=== PATIENT | female | born 1945 | race Caucasian/White ===

== ENCOUNTER 2017-10-07 18:52 | Inpatient (IN) ==
--- NOTE | 2017-10-07 21:12 | Internal Med History&Physical ---
Date of Encounter: 10/07/17 Time of Encounter: 21:10 Assessment and Plan (1) Right humeral fracture Current visit: Yes Status: Acute Mechanical fall and sustained right humeral fracture Dr. Ruby has been consult Qualifiers: Encounter type: initial encounter Humerus Location: surgical neck Fracture type: closed Fracture morphology: unspecified fracture morphology Fracture alignment: nondisplaced Qualified Code(s): S42.214A - Unspecified nondisplaced fracture of surgical neck of right humerus, initial encounter for closed fracture (2) CAD (coronary artery disease) Current visit: Yes Status: Chronic She have history of MA 2006 no chest pain Qualifiers: Coronary Disease-Associated Artery/Lesion type: [place] artery [place] vs. transplanted heart: [place] heart Associated angina: without angina Qualified Code(s): I25.10 - Atherosclerotic heart disease of [place] coronary artery without angina pectoris (3) HTN (hypertension) Current visit: Yes Status: Chronic Chronic resume home medication Qualifiers: Hypertension type: essential hypertension Qualified Code(s): I10 - Essential (primary) hypertension (4) Obesity Current visit: Yes Status: Chronic Qualifiers: Obesity type: due to excess calories Obesity classification: unspecified obesity classification Serious obesity comorbidity presence: unspecified whether serious comorbidity present Qualified Code(s): E66.09 - Other obesity due to excess calories (5) Hyperlipidemia Current visit: Yes Status: Chronic Check lipid profile in a.m. Qualifiers: Hyperlipidemia type: pure hypercholesterolemia Qualified Code(s): E78.00 - Pure hypercholesterolemia, unspecified; E78.0 - Pure hypercholesterolemia (6) Diabetes 1.5, managed as type 2 Current visit: Yes Status: Chronic Chronic resume home medication and place on sliding scale (7) CKD (chronic kidney disease) Current visit: Yes Status: Chronic Chronic creatinine baseline about 1.5 Qualifiers: Chronic kidney disease stage: stage 2 (mild) Qualified Code(s): N18.2 - Chronic kidney disease, stage 2 (mild) Internal Medicine - H&P: HPI Chief complaint: right humerous fracture/mech fall Admitted From: Intrahospital Transfer Plans for Post Hospital Care: Home History of present illness: Ms. Fagan is a 71 year old female Patient with history of arthritis,, CKD CAD had an MA 2005, history of GI bleed, hypertension, high cholesterol, obesity, and diabetes patient had a mechanical fall and sustained right humeral fracture no loss of consciousness did not hit her head and then went to the emergency room x-ray showed right humeral fracture and then transferred here Dr. Ruby orthopedic has been consult taped Past Med Surg Social Fam HX - Past Medical History Medical history: arthritis, coronary artery disease, GI bleed, hyperlipidemia, hypertension, myocardial infarction Psychiatric history: no psych history - Past Surgical History Surgical History: orthopedic, other - Social History Smoking Status: Never smoker Smokeless Tobacco Status: No Alcohol use: none Drug use: none Internal Medicine - H&P: Meds OxyCODONE/APAP 5/325 [Percocet 5/325 MG] 1 each PO Q6HR PRN #10 tablet 04/07/15 [Rx] HYDROcodone/Acet 5/325 mg [[place] 5-325 mg] 1 tab PO Q6H PRN #10 tab 11/05/16 [Rx ] 3 Allergy/AdvReac Type Severity Reaction Status Date / Time acetaminophen [From Lortab] Allergy Hives Verified 11/05/16 17:02 azithromycin Allergy Hives Verified 11/05/16 17:02 cephalexin [From Keflex] Allergy Hives Verified 11/05/16 17:02 chlorhexidine Allergy Hives Verified 11/05/16 17:02 [From Hibiclens] gabapentin Allergy Hives Verified 11/05/16 17:02 hydrocodone [From Lortab] Allergy Hives Verified 11/05/16 17:02 Tizanidine Allergy Hives Verified 11/05/16 17:02 All Systems PM: A 10-system review of systems was performed and is negative for pertinent findings except as documented above in the HPI. - Constitutional Constitutional: no chills, no fever(s), no night sweats - EENT Eyes: no change in vision, no discharge, no pain, no photophobia Ears: no ear discharge, no ear pain, no tinnitus Nose, mouth and throat: no dysphagia, no nasal discharge, no neck pain, no sore throat - Cardiovascular Cardiovascular ROS IM: no chest pain, no diaphoresis, no dyspnea, no lightheadedness, no palpitations, no syncope - Respiratory Respiratory: no cough, no dyspnea, no wheezing, no excessive phlegm production - Gastrointestinal Gastrointestinal: no abdominal pain, no diarrhea, no hematemesis, no hematochezia, no melena, no nausea, no vomiting - Eye Eye exam: Present: PERRL, conjuntiva pink, sclera anicteric Pupils: Present: PERRL - Neck Neck exam general surgery: Present: supple, trachea midline. Absent: lymphadenopathy - Respiratory Respiratory exam: Present: CTAB. Absent: accessory muscle use, rales, rhonchi, wheezes - Cardiovascular Cardiovascular exam: Present: RRR, +S1, +S2. Absent: diastolic murmur, gallop, rubs, systolic murmur - GI/Abdominal GI/Abdominal exam: Present: normal bowel sounds, soft, no peritoneal signs. Absent: distended, tenderness
[2017-10-07] MEDS ORDERED: Acetaminophen 325 MG TABLET PO PRN (21:17)
[2017-10-07] MEDS ORDERED: Naloxone 0.4 MG/ML INJ IVP PRN (21:17)
[2017-10-07] MEDS ORDERED: D5% in Water 1,000 ML IVC PRN (21:21)
[2017-10-07] MEDS ORDERED: Dextrose Gel 15 GM/37.5 ML TUBE PO PRN ×2 (21:21)
[2017-10-07] MEDS ORDERED: *HR* Dextrose 50 % in Water (Syg) 50 ML SYRINGE IVP PRN (21:21)
[2017-10-07] MEDS: traMADol 50 MG TABLET PO PRN (22:28)
[2017-10-07] MEDS: 0.9 % Sodium Chloride 1,000 ML IVC SCH (22:29)
[2017-10-08] MEDS: Pregabalin 25 MG CAPSULE PO SCH ×3 (00:19→21:56)
[2017-10-08] MEDS ORDERED: *HR* Enoxaparin 40 MG/0.4 ML SYRINGE SQ SCH (06:00)
[2017-10-08 06:03] LABS: Basophils % 0.6 %; Eosinophils # 0.2 K/mcL (0.0-0.6); Eosinophils % 2.3 %; Hematocrit 29.4 % (35.3-44.9); Immature Granulocytes % 0.3 % (0-4); Lymphocytes # 1.4 K/mcL (0.6-4.6); Lymphocytes % 21.6 %; Mean Corpuscular HGB Conc 30.6 g/dL (31.6-35.5); Mean Corpuscular Hemoglobin 30.2 pg (28.0-33.3); Mean Corpuscular Volume 98.7 fL (83.0-100.0); Mean Platelet Volume 11.6 fL (9.4-12.4); Monocytes # 0.8 K/mcL (0.0-1.3); Monocytes % 12.2 %; Neutrophils # 4.2 K/mcL (1.6-8.9); Platelet Count 181 K/mcL (140-400); Red Blood Count 2.98 M/mcL (3.82-4.97); Red Cell Distribution Width 15.1 % (11.5-14.5)
[2017-10-08 06:13] LABS: Albumin 3.6 g/dL (3.5-5.7); Albumin/Globulin Ratio 1.2 (1.1-2.2); Bilirubin,Total 0.5 mg/dL (0.3-1.0); Chol/HDL Ratio 3.1 (0-4.9); Globulin 2.9 g/dL (2.4-3.5); Magnesium 1.9 mg/dL (1.6-2.6); Potassium 4.1 mEq/L (3.5-5.1); Total Protein 6.5 g/dL (6.4-8.9)
[2017-10-08] MEDS: *HR* HYDROcodone/Acet 5/325 mg TABLET PO PRN ×3 (08:15→18:36)
--- NOTE | 2017-10-08 08:16 | Internal Med Progress Note ---
<Perez Riley - Last Filed: 10/08/17 14:34> Date of Encounter: 10/08/17 Time of Encounter: 09:15 - Assessment and plan (1) Right humeral fracture Current Visit: Yes Status: Acute Assessment and plan: Right humeral fracture s/p mechanical fall Orthopedic surgery on board, plan for ORIF today Patient has PRN pain medications ordered which adequately control acute pain Qualifiers: Encounter type: initial encounter Humerus Location: surgical neck Fracture type: closed Fracture morphology: unspecified fracture morphology Fracture alignment: nondisplaced Qualified Code(s): S42.214A - Unspecified nondisplaced fracture of surgical neck of right humerus, initial encounter for closed fracture (2) CAD (coronary artery disease) Current Visit: Yes Status: Chronic Assessment and plan: Hx of CAD s/p [place] 2005 No chest pain at this time Continue home meds Qualifiers: Coronary Disease-Associated Artery/Lesion type: [place] artery [place] vs. transplanted heart: [place] heart Associated angina: without angina Qualified Code(s): I25.10 - Atherosclerotic heart disease of [place] coronary artery without angina pectoris (3) HTN (hypertension) Current Visit: Yes Status: Chronic Assessment and plan: Resume home meds Qualifiers: Hypertension type: essential hypertension Qualified Code(s): I10 - Essential (primary) hypertension (4) Obesity Current Visit: Yes Status: Chronic Assessment and plan: Patient has been counseled on weight loss Qualifiers: Obesity type: due to excess calories Obesity classification: unspecified obesity classification Serious obesity comorbidity presence: unspecified whether serious comorbidity present Qualified Code(s): E66.09 - Other obesity due to excess calories (5) Hyperlipidemia Current Visit: No Status: Chronic Assessment and plan: Hyperlipidemia, chronic LDL and HDL cholesterol in appropriate ranges Continue home statin Qualifiers: Hyperlipidemia type: pure hypercholesterolemia Qualified Code(s): E78.00 - Pure hypercholesterolemia, unspecified; E78.0 - Pure hypercholesterolemia (6) Diabetes 1.5, managed as type 2 Current Visit: Yes Status: Chronic Assessment and plan: Apparently well controlled DM1.5 We will use SSI for management of BG during admission (7) CKD (chronic kidney disease) Current Visit: Yes Status: Chronic Assessment and plan: CKD stage 3B, Stable Serum Cr 1.33, baseline 1.3. eGFR 39 Avoid nephrotoxic agents, continue to monitor renal function Qualifiers: Chronic kidney disease stage: stage 2 (mild) Qualified Code(s): N18.2 - Chronic kidney disease, stage 2 (mild) (8) Pre-operative examination for internal medicine Current Visit: Yes Status: Acute Assessment and plan: Moderate to high risk surgical candidate, RCI Class IV Patient has history of [place] in 2005, CHF No prior TTE to observe, EKG shows no obvious signs of acute ischemia There are no medications that should be stopped prior to surgery (9) DVT prophylaxis Current Visit: Yes Status: Acute Assessment and plan: SQ Lovenox - Subjective Interval history: The patient was resting comfortably in a bedside chair at time of examination. She is currently wearing a sling on her right arm. She says that she still having significant pain in her hips, back, shoulders. Some of this is chronic. - Constitutional Vitals: Temp Pulse Resp BP Pulse Ox 98.5 F 73 16 127/74 95 10/08/17 06:41 10/08/17 06:41 10/08/17 06:41 10/08/17 06:41 10/08/17 06:41 Exam: Gen.: Vitals noted. No acute distress. AAOx3 HEENT: PERRL/EOMI, oropharynx clear, Normocephalic, atraumatic Neck: Supple. No adenopathy. Cardiac: RRR, no murmur, +S1/S2 Pulmonary: CTA bilaterally, no wheezes, rales or rhonchi, equal chest expansion Abdomen: soft, nontender, BS noted, no guarding Back: Tender throughout thoracic and lumbar spine, multiple incision site scars found MSK: ROM intact, no joint swelling noted. Right UE is found in sling, neurovascular bundle intact, pink fingers with normal sensation and movement. Extremities: no BLE edema, nontender calf, no cyanosis or clubbing Neuro: A&Ox3, moves all extremities, no focal deficits Psych: Appropriate mood and behavior Internal Medicine: Result - Labs CBC & Chem 7: 10/08/17 04:53 10/08/17 04:53 Labs: Short CBC 10/08/17 Range/Units 04:53 WBC 6.7 (4.3-11.1) K/mcL Hgb 9.0 L (11.5-15.4) g/dL Hct 29.4 L (35.3-44.9) % Plt Count 181 (140-400) K/mcL Neutrophils # 4.2 (1.6-8.9) K/mcL BMP 10/08/17 04:53 Sodium 138 Potassium 4.1 Chloride 109 H Carbon Dioxide 23 BUN 21 Creatinine 1.33 H Glucose 149 H Calcium 9.0 Cardiac Enzymes 10/07/17 10/08/17 Range/Units 21:43 04:53 Troponin I < 0.03 < 0.03 (< 0.04) ng/mL Liver Function 10/08/17 Range/Units 04:53 Total Bilirubin 0.5 (0.3-1.0) mg/dL AST 26 (13-39) Units/L ALT 12 (7-52) Units/L Alkaline Phosphatase 50 (34-104) Units/L Albumin 3.6 (3.5-5.7) g/dL Consult Discharge Plan - Plan Referrals: Cherelle Verma MD [Primary Care Provider] - <Enzo Forbes - Last Filed: 10/08/17 15:17> Date of Encounter: 10/08/17 - Assessment and plan (1) Right humeral fracture Current Visit: Yes Status: Acute Qualifiers: Encounter type: initial encounter Humerus Location: surgical neck Fracture type: closed Fracture morphology: unspecified fracture morphology Fracture alignment: nondisplaced Qualified Code(s): S42.214A - Unspecified nondisplaced fracture of surgical neck of right humerus, initial encounter for closed fracture (2) CAD (coronary artery disease) Current Visit: Yes Status: Chronic Qualifiers: Coronary Disease-Associated Artery/Lesion type: [place] artery [place] vs. transplanted heart: [place] heart Associated angina: without angina Qualified Code(s): I25.10 - Atherosclerotic heart disease of [place] coronary artery without angina pectoris (3) HTN (hypertension) Current Visit: Yes Status: Chronic Qualifiers: Hypertension type: essential hypertension Qualified Code(s): I10 - Essential (primary) hypertension (4) Obesity Current Visit: Yes Status: Chronic Qualifiers: Obesity type: due to excess calories Obesity classification: unspecified obesity classification Serious obesity comorbidity presence: unspecified whether serious comorbidity present Qualified Code(s): E66.09 - Other obesity due to excess calories (5) Hyperlipidemia Current Visit: No Status: Chronic Qualifiers: Hyperlipidemia type: pure hypercholesterolemia Qualified Code(s): E78.00 - Pure hypercholesterolemia, unspecified; E78.0 - Pure hypercholesterolemia (6) Diabetes 1.5, managed as type 2 Current Visit: Yes Status: Chronic (7) CKD (chronic kidney disease) Current Visit: Yes Status: Chronic Qualifiers: Chronic kidney disease stage: stage 2 (mild) Qualified Code(s): N18.2 - Chronic kidney disease, stage 2 (mild) (8) Pre-operative examination for internal medicine Current Visit: Yes Status: Acute (9) DVT prophylaxis Current Visit: Yes Status: Acute - Constitutional Vitals: Temp Pulse Resp BP Pulse Ox 98.7 F 81 16 129/68 96 10/08/17 09:55 10/08/17 09:55 10/08/17 09:55 10/08/17 09:55 10/08/17 09:55 Internal Medicine: Result - Labs CBC & Chem 7: 10/08/17 04:53 10/08/17 04:53 Labs: Short CBC 10/08/17 Range/Units 04:53 WBC 6.7 (4.3-11.1) K/mcL Hgb 9.0 L (11.5-15.4) g/dL Hct 29.4 L (35.3-44.9) % Plt Count 181 (140-400) K/mcL Neutrophils # 4.2 (1.6-8.9) K/mcL BMP 10/08/17 04:53 Sodium 138 Potassium 4.1 Chloride 109 H Carbon Dioxide 23 BUN 21 Creatinine 1.33 H Glucose 149 H Calcium 9.0 Cardiac Enzymes 10/07/17 10/08/17 10/08/17 Range/Units 21:43 04:53 10:30 Troponin I < 0.03 < 0.03 < 0.03 (< 0.04) ng/mL Liver Function 10/08/17 Range/Units 04:53 Total Bilirubin 0.5 (0.3-1.0) mg/dL AST 26 (13-39) Units/L ALT 12 (7-52) Units/L Alkaline Phosphatase 50 (34-104) Units/L Albumin 3.6 (3.5-5.7) g/dL - Attending Attestation I examined this patient and my medical decision-making was reviewed with the Resident Physician. I agree with the documented findings, disposition and treatment plan as described except to the extent set forth below. Seen and examined at the bedside Agree with plan For surgery today
[2017-10-08] MEDS: Insulin LISPRO 300 UNITS/3 ML VIAL SQ SCH ×3 (08:54→18:30)
--- NOTE | 2017-10-08 09:14 | Event Note ---
Date of Encounter: 10/08/17 Time of Encounter: 09:00 Patient seen at bedside. Patient expresses concern regarding ability to return home after surgery. Denies any questions regarding surgical procedure itself. Discussed home health vs rehab as patient states she has no one available to help her at home and she is ambulatory with cane or walker only. Discussed with patient and Dr. Derrell BYNUM and nurse Allison. Will continue to follow after surgery.
[2017-10-08] MEDS: 0.9 % Sodium Chloride 1,000 ML IVC SCH (11:31)
[2017-10-08] MEDS ORDERED: *HR* Propofol 200 MG/20 ML VIAL IVP ONE (14:55)
[2017-10-08] MEDS ORDERED: Lidocaine -MPF 2% 2 ML VIAL ONE (14:58)
[2017-10-08] MEDS ORDERED: *HR* Rocuronium Bromide 50 MG/5 ML VIAL ONE (14:58)
[2017-10-08] MEDS ORDERED: Dexamethasone 4 MG/ML VIAL ONE ×2 (14:58→15:18)
[2017-10-08] MEDS ORDERED: Ondansetron 4 MG/2 ML VIAL ONE (14:58)
[2017-10-08] MEDS ORDERED: *HR* Succinylcholine 200 MG/10 ML VIAL IVP ONE (15:02)
[2017-10-08] MEDS ORDERED: Ethanol\\Acetic Acid\\Na Ace\\Ben 1,000 ML IRRIG.SOLN IR ONE (15:02)
[2017-10-08] MEDS ORDERED: Bupivacaine-MPF 0.25% 10 ML VIAL ONE (15:18)
[2017-10-08] MEDS ORDERED: *HR* Midazolam HCl 2 MG/2 ML VIAL ONE (15:18)
[2017-10-08] MEDS ORDERED: *HR* FentaNYL (PF) 100 MCG/2 ML VIAL ONE (15:18)
--- NOTE | 2017-10-08 15:20 | Anesthesia Evaluation PreOp ---
Date of Encounter: 10/08/17 Time of Encounter: 15:18 - Past History Planned Operation: Right total shoulder replacement, reverse Cardiac History: [place] (2005), HTN, Hyperlipidemia, Cardiac Stent (2 stents 2005), Other (good functional capacity; able to walk up a flight of stairs) Pulmonary History: Other (patient has been more short of breath recently) [employer] History: Denies Any Significant HX Other Medical History: Renal (ckd stage 3), Diabetes Type II (oral medications only) Anesthesia History: No Prior Anesthetic Complications Alcohol Use: none Drug use: none Medications and Allergies Aspirin [Lo-Dose Aspirin EC] 81 mg PO DAILY 10/07/17 [History] Atenolol [Tenormin] 25 mg PO DAILY 10/07/17 [History] Atorvastatin [Lipitor] 80 mg PO HS 10/07/17 [History] Pregabalin [Lyrica] 25 mg PO BID 10/07/17 [History] Sertraline [Zoloft] 100 mg PO DAILY 10/07/17 [History] Biotin 1,000 mcg PO DAILY 10/08/17 [History] Ergocalciferol (VITAMIN D2) [Vitamin D2] 50,000 unit PO QWEEK 10/08/17 [History] Famotidine [Pepcid] 20 mg PO DAILY 10/08/17 [History] Ferrous Sulfate [Iron] 325 mg PO DAILY 10/08/17 [History] Glimepiride [Amaryl] 2 mg PO QPM 10/08/17 [History] Glimepiride [Amaryl] 4 mg PO QAM 10/08/17 [History] HYDROcodone/Acet 5/325 mg [[place] 5-325 mg] 1 tab PO BID PRN 10/08/17 [History] Pioglitazone [Actos] 30 mg PO DAILY 10/08/17 [History] SitaGLIPtin [Januvia] 25 mg PO DAILY 10/08/17 [History] Sodium Bicarbonate 325 mg PO BID 10/08/17 [History] 3 Allergy/AdvReac Type Severity Reaction Status Date / Time azithromycin Allergy Hives Verified 10/08/17 09:36 cephalexin [From Keflex] Allergy Hives Verified 10/08/17 09:36 chlorhexidine Allergy Hives Verified 10/08/17 09:36 [From Hibiclens] gabapentin Allergy Hives Verified 10/08/17 09:36 Tizanidine Allergy Hives Verified 10/08/17 09:36 - Meds/Allergy Pre-op Review Medications Reviewed: Yes Allergies Reviewed: Yes Beta Blockers on Current Med List: Yes (atenolol) If Beta Blockers taken, Date/Time (Last Dose taken): 10-07-17 9:00 am Anesthesia Results - Labs 10/08/17 04:53 10/08/17 04:53 - Imaging EKG: report reviewed, image reviewed (SR; low voltage QRS in precordial leads, nonspecific ST&T abnormality) Anesthesia Exam Last Vital Signs Temp 98.7 F 10/08/17 09:55 Pulse 81 10/08/17 09:55 Resp 16 10/08/17 09:55 BP 129/68 10/08/17 09:55 Pulse Ox 96 10/08/17 09:55 Weight: 89 kg NPO (# of Hours): > 8 hrs - HEENT Pupil (Motor): Pupils equal, EOMI Mallampati: II Teeth: Normal (short TM distance) Oral Opening: Greater than 3 - [employer] LOC: Oriented - Cardiac Rhythm: Regular Murmur: None - Pulmonary Breath Sounds: bilateral Clear Respiratory Effort: Symmetrical Anesthesia Assess/Plan ASA Score: 3 Modified Parrish Scale for Level of Consciousness: Cooperative, oriented, and tranquil Anesthetic Plan: General, Regional Monitoring Plan: Standard Monitors Recovery Plan: PACU
[2017-10-08] MEDS ORDERED: ROPIVACAINE HCL/PF 0.5% 30 ML VIAL ONE (15:24)
--- NOTE | 2017-10-08 16:17 | Orthopedics Progress Note ---
Date of Encounter: 10/08/17 Time of Encounter: 16:17 Subjective Interval history: Patient surgery was placed on hold today. Further evaluation of x-rays revealed a spiral fracture that extends from the proximal humerus to the distal humerus. Patient requires a CT scan to better plan for the procedure.The patient understands the reason for the delay surgery is rescheduled for tomorrow. Objective Vital signs: Vital Signs Temp Pulse Resp BP Pulse Ox 10/08/17 09:55 98.7 F 81 16 129/68 96 10/08/17 09:00 95 10/08/17 06:41 98.5 F 73 16 127/74 95 10/08/17 04:33 98.4 F 68 18 134/64 96 10/07/17 23:16 98.4 F 77 18 141/60 98 10/07/17 20:57 97 10/07/17 20:45 98.4 F 73 18 122/65 97 Intake and Output 10/08/17 10/08/17 10/08/17 07:59 15:59 23:59 Intake Total 1000 / 1000 Output Total 525 / 525 450 / 450 Balance -525 / -525 550 / 550 Intake: IV Fluids 1000 / 1000 0.9 % Sodium Chloride 1,000 ML 1000 / 1000 @ 75 mls/hr IVC .[id number] PRATIBHA Rx #:[id number] Output: Catheter 525 / 525 450 / 450 Other: Blood Glucose* 176 - Labs CBC & BMP: 10/08/17 04:53 10/08/17 04:53 Labs: Abnormal lab results RBC 2.98 M/mcL (3.82-4.97) L 10/08/17 04:53 Hgb 9.0 g/dL (11.5-15.4) L 10/08/17 04:53 Hct 29.4 % (35.3-44.9) L 10/08/17 04:53 MCHC 30.6 g/dL (31.6-35.5) L 10/08/17 04:53 RDW 15.1 % (11.5-14.5) H 10/08/17 04:53 Chloride 109 mEq/L (98-107) H 10/08/17 04:53 Creatinine 1.33 mg/dL (0.60-1.20) H 10/08/17 04:53 Est GFR ( Amer) 48 (> 60) L 10/08/17 04:53 Est GFR (Non-Af Amer) 39 (> 60) L 10/08/17 04:53 Glucose 149 mg/dL (70-105) H 10/08/17 04:53 POC Glucose 176 (58-89) H 10/08/17 11:35 Consult Discharge Plan - Plan Referrals: Cherelle Verma MD [Primary Care Provider] -
[2017-10-08] MEDS ORDERED: OXYCODONE Oral CONC 10 MG/0.5 ML ORAL.SYG SL ONE (17:03)
[2017-10-09] MEDS: *HR* HYDROcodone/Acet 5/325 mg TABLET PO PRN ×3 (02:29→20:48)
--- NOTE | 2017-10-09 06:07 | Orthopedics Progress Note ---
Date of Encounter: 10/09/17 Time of Encounter: 06:07 Subjective Interval history: CT scan reviewed plan is for long open reduction internal fixation plate extending from proximal humerus was done to the elbow. Reviewed this with the patient obtained a consent We reviewed the risks and benefits as well as recovery. All questions were answered. The patient agreed to this treatment plan and appeared to understand the plan is reviewed. Objective Vital signs: Vital Signs Temp Pulse Resp BP Pulse Ox 10/09/17 04:11 99.2 F 82 18 124/64 95 10/08/17 22:31 98.6 F 101 17 137/89 99 10/08/17 19:58 98.9 F 70 16 155/57 96 10/08/17 09:55 98.7 F 81 16 129/68 96 10/08/17 09:00 95 10/08/17 06:41 98.5 F 73 16 127/74 95 Intake and Output 10/08/17 10/08/17 10/09/17 15:59 23:59 07:59 Intake Total 1000 / 1000 120 / 120 0 / 0 Output Total 450 / 450 600 / 600 Balance 550 / 550 120 / 120 -600 / -600 Intake: IV Fluids 1000 / 1000 0.9 % Sodium Chloride 1,000 ML 1000 / 1000 @ 75 mls/hr IVC .[id number] PRATIBHA Rx #:[id number] Oral 120 / 120 0 / 0 Output: Catheter 450 / 450 600 / 600 Other: Meal Dinner Percent of Meal Consumed 100% Weight 90.31 kg Blood Glucose* 176 176 Patient Weight 10/09/17 23:59 Weight 90.31 kg - Labs CBC & BMP: 10/08/17 04:53 10/08/17 04:53 Labs: Abnormal lab results RBC 2.98 M/mcL (3.82-4.97) L 10/08/17 04:53 Hgb 9.0 g/dL (11.5-15.4) L 10/08/17 04:53 Hct 29.4 % (35.3-44.9) L 10/08/17 04:53 MCHC 30.6 g/dL (31.6-35.5) L 10/08/17 04:53 RDW 15.1 % (11.5-14.5) H 10/08/17 04:53 Chloride 109 mEq/L (98-107) H 10/08/17 04:53 Creatinine 1.33 mg/dL (0.60-1.20) H 10/08/17 04:53 Est GFR ( Amer) 48 (> 60) L 10/08/17 04:53 Est GFR (Non-Af Amer) 39 (> 60) L 10/08/17 04:53 Glucose 149 mg/dL (70-105) H 10/08/17 04:53 POC Glucose 176 (58-89) H 10/08/17 11:35 - VTE Documentation of Mechanical Device: Venous foot pump, device Consult Discharge Plan - Plan Referrals: Cherelle Verma MD [Primary Care Provider] -
[2017-10-09 07:15] LABS: Basophils % 0.4 %; Eosinophils # 0.3 K/mcL (0.0-0.6); Eosinophils % 4.4 %; Hematocrit 27.5 % (35.3-44.9); Hemoglobin 8.8 g/dL (11.5-15.4); Immature Granulocytes % 0.3 % (0-4); Lymphocytes # 1.4 K/mcL (0.6-4.6); Lymphocytes % 21.1 %; Mean Corpuscular Volume 96.8 fL (83.0-100.0); Mean Platelet Volume 11.6 fL (9.4-12.4); Monocytes # 0.9 K/mcL (0.0-1.3); Monocytes % 13.1 %; Neutrophils # 4.1 K/mcL (1.6-8.9); Platelet Count 169 K/mcL (140-400); Red Blood Count 2.84 M/mcL (3.82-4.97); Segmented Neutrophils % 60.7 %
[2017-10-09] MEDS: traMADol 50 MG TABLET PO PRN (07:33)
--- NOTE | 2017-10-09 07:37 | Internal Med Progress Note ---
<Perez Riley - Last Filed: 10/09/17 13:00> Date of Encounter: 10/09/17 Time of Encounter: 08:30 - Assessment and plan (1) Right humeral fracture Current Visit: Yes Status: Acute Assessment and plan: Right humeral fracture s/p mechanical fall Orthopedic surgery on board, Possible ORIF today pending CT evaluation Patient has PRN pain medications ordered which adequately control acute pain Qualifiers: Encounter type: initial encounter Humerus Location: surgical neck Fracture type: closed Fracture morphology: unspecified fracture morphology Fracture alignment: nondisplaced Qualified Code(s): S42.214A - Unspecified nondisplaced fracture of surgical neck of right humerus, initial encounter for closed fracture (2) CAD (coronary artery disease) Current Visit: Yes Status: Chronic Assessment and plan: Hx of CAD s/p [place] 2005 No chest pain at this time Continue home meds Qualifiers: Coronary Disease-Associated Artery/Lesion type: [place] artery [place] vs. transplanted heart: [place] heart Associated angina: without angina Qualified Code(s): I25.10 - Atherosclerotic heart disease of [place] coronary artery without angina pectoris (3) HTN (hypertension) Current Visit: Yes Status: Chronic Assessment and plan: Resume home meds Qualifiers: Hypertension type: essential hypertension Qualified Code(s): I10 - Essential (primary) hypertension (4) Obesity Current Visit: Yes Status: Chronic Assessment and plan: Patient has been counseled on weight loss Qualifiers: Obesity type: due to excess calories Obesity classification: unspecified obesity classification Serious obesity comorbidity presence: unspecified whether serious comorbidity present Qualified Code(s): E66.09 - Other obesity due to excess calories (5) Hyperlipidemia Current Visit: No Status: Chronic Assessment and plan: Hyperlipidemia, chronic LDL and HDL cholesterol in appropriate ranges Continue home statin Qualifiers: Hyperlipidemia type: pure hypercholesterolemia Qualified Code(s): E78.00 - Pure hypercholesterolemia, unspecified; E78.0 - Pure hypercholesterolemia (6) Diabetes 1.5, managed as type 2 Current Visit: Yes Status: Chronic Assessment and plan: Apparently well controlled DM1.5 We will use SSI for management of BG during admission (7) CKD (chronic kidney disease) Current Visit: Yes Status: Chronic Assessment and plan: CKD stage 3B, Stable Serum Cr 1.26, baseline 1.3. eGFR 42 Avoid nephrotoxic agents, continue to monitor renal function Qualifiers: Chronic kidney disease stage: stage 2 (mild) Qualified Code(s): N18.2 - Chronic kidney disease, stage 2 (mild) (8) Pre-operative examination for internal medicine Current Visit: Yes Status: Acute Assessment and plan: Moderate to high risk surgical candidate, RCI Class IV Patient has history of FL in 2006, CHF No prior TTE to observe, EKG shows no obvious signs of acute ischemia There are no medications that should be stopped prior to surgery (9) DVT prophylaxis Current Visit: Yes Status: Acute Assessment and plan: SQ Lovenox - Subjective Interval history: The patient was resting comfortably in a bedside chair at time of examination. She is currently wearing a sling on her right arm. The patient complains of diffuse pain throughout her body, not necessarily coming specifically from her site of injury. Apparently, the injury was more severe than previously noted, and she was unable to have the procedure yesterday because she would require a CT and order to safely perform the reconstruction. However, upon transport to the CT she apparently could not tolerate the movement due to pain and did not have the CT completed. The patient also apparently became somewhat confused and disoriented overnight. - Constitutional Vitals: Temp Pulse Resp BP Pulse Ox 99.2 F 82 18 124/64 95 10/09/17 04:11 10/09/17 04:11 10/09/17 04:11 10/09/17 04:11 10/09/17 04:11 Exam: Gen.: Vitals noted. No acute distress. AAOx3 HEENT: PERRL/EOMI, oropharynx clear, Normocephalic, atraumatic Neck: Supple. No adenopathy. Cardiac: RRR, no murmur, +S1/S2 Pulmonary: CTA bilaterally, no wheezes, rales or rhonchi, equal chest expansion Abdomen: soft, nontender, BS noted, no guarding Back: Tender throughout thoracic and lumbar spine, multiple incision site scars found MSK: ROM intact, no joint swelling noted. Right UE is found in sling, neurovascular bundle intact, pink fingers with normal sensation and movement. Extremities: Trace LE edema b/l with tenderness circumferentially around legs Neuro: A&Ox3, moves all extremities, no focal deficits Psych: Appropriate mood and behavior Internal Medicine: Result - Labs CBC & Chem 7: 10/09/17 06:25 10/09/17 06:25 Labs: Short CBC 10/09/17 Range/Units 06:25 WBC 6.8 (4.3-11.1) K/mcL Hgb 8.8 L (11.5-15.4) g/dL Hct 27.5 L (35.3-44.9) % Plt Count 169 (140-400) K/mcL Neutrophils # 4.1 (1.6-8.9) K/mcL Cardiac Enzymes 10/08/17 Range/Units 10:30 Troponin I < 0.03 (< 0.04) ng/mL - Impressions Impressions Humerus X-Ray 10/08/17 00:00 IMPRESSION: Acute traumatic mildly displaced comminuted fracture of the proximal humerus extending from the humeral neck to the distal diaphysis. D/ / 10/08/2017 15:41:42 Jes Lanza MD / marva Interpreting Provider: Jes Lanza MD - VTE Documentation of Mechanical Device: Venous foot pump, device Consult Discharge Plan - Plan Referrals: Cherelle Verma MD [Primary Care Provider] - <Enzo Forbes T - Last Filed: 10/09/17 14:17> Date of Encounter: 10/09/17 - Assessment and plan (1) Right humeral fracture Current Visit: Yes Status: Acute Qualifiers: Encounter type: initial encounter Humerus Location: surgical neck Fracture type: closed Fracture morphology: unspecified fracture morphology Fracture alignment: nondisplaced Qualified Code(s): S42.214A - Unspecified nondisplaced fracture of surgical neck of right humerus, initial encounter for closed fracture (2) CAD (coronary artery disease) Current Visit: Yes Status: Chronic Qualifiers: Coronary Disease-Associated Artery/Lesion type: [place] artery [place] vs. transplanted heart: [place] heart Associated angina: without angina Qualified Code(s): I25.10 - Atherosclerotic heart disease of [place] coronary artery without angina pectoris (3) HTN (hypertension) Current Visit: Yes Status: Chronic Qualifiers: Hypertension type: essential hypertension Qualified Code(s): I10 - Essential (primary) hypertension (4) Obesity Current Visit: Yes Status: Chronic Qualifiers: Obesity type: due to excess calories Obesity classification: unspecified obesity classification Serious obesity comorbidity presence: unspecified whether serious comorbidity present Qualified Code(s): E66.09 - Other obesity due to excess calories (5) Hyperlipidemia Current Visit: No Status: Chronic Qualifiers: Hyperlipidemia type: pure hypercholesterolemia Qualified Code(s): E78.00 - Pure hypercholesterolemia, unspecified; E78.0 - Pure hypercholesterolemia (6) Diabetes 1.5, managed as type 2 Current Visit: Yes Status: Chronic (7) CKD (chronic kidney disease) Current Visit: Yes Status: Chronic Qualifiers: Chronic kidney disease stage: stage 2 (mild) Qualified Code(s): N18.2 - Chronic kidney disease, stage 2 (mild) (8) Pre-operative examination for internal medicine Current Visit: Yes Status: Acute (9) DVT prophylaxis Current Visit: Yes Status: Acute - Constitutional Vitals: Temp Pulse Resp BP Pulse Ox 98.4 F 93 18 151/71 98 10/09/17 11:15 10/09/17 11:15 10/09/17 11:15 10/09/17 11:15 10/09/17 11:15 Internal Medicine: Result - Labs CBC & Chem 7: 10/09/17 06:25 10/09/17 06:25 Labs: Short CBC 10/09/17 Range/Units 06:25 WBC 6.8 (4.3-11.1) K/mcL Hgb 8.8 L (11.5-15.4) g/dL Hct 27.5 L (35.3-44.9) % Plt Count 169 (140-400) K/mcL Neutrophils # 4.1 (1.6-8.9) K/mcL BMP 10/09/17 06:25 Sodium 138 Potassium 3.9 Chloride 109 H Carbon Dioxide 24 BUN 17 Creatinine 1.26 H Glucose 147 H Calcium 8.7 - Impressions Impressions Humerus X-Ray 10/08/17 00:00 IMPRESSION: Acute traumatic mildly displaced comminuted fracture of the proximal humerus extending from the humeral neck to the distal diaphysis. D/ / 10/08/2017 15:41:42 Jes Lanza MD / marva Interpreting Provider: Jes Lanza MD Humerus CT 10/09/17 00:00 IMPRESSION: 1. Decreased bone mineral density. 2. Global moderate rotator cuff muscular atrophy with findings highly suspicious for full-thickness retracted supraspinatus tear. 3. Acromioclavicular and glenohumeral arthropathy with mild superior glenohumeral subluxation. No acute scapular fracture. 4. Comminuted multifocal left humerus fracture. At the proximal metaphysis to the mid diaphysis there is a mildly displace in apex medial angulated fracture. In the mid to distal humeral diaphysis there is a displaced and mild apex posterior angulated fracture. 5. Normal elbow alignment with osteoarthritis. Nonspecific elbow effusion which may represent degenerative effusion versus a subtle nondisplaced radial head fracture which is not identified by CT though there is motion artifact. D/ / 10/09/2017 13:34:11 Ant Coates MD / marva Interpreting Provider: Ant Coates MD - Attending Attestation I examined this patient and my medical decision-making was reviewed with the Resident Physician. I agree with the documented findings, disposition and treatment plan as described except to the extent set forth below. Seen and examined at the bedside Patient with multiple nonspecific complaints, also has chronic pain due to multiple back surgeries and left hip replacement surgery. Awaiting CAT scan of the right humerus and surgery. Physical exam unremarkable, hemodynamically stable Agree with plan For surgery today Rest of details as in the resident physician's documentation.
[2017-10-09] MEDS: Insulin LISPRO 300 UNITS/3 ML VIAL SQ SCH ×2 (07:42→11:56)
[2017-10-09] MEDS: Pregabalin 25 MG CAPSULE PO SCH ×2 (07:44→20:47)
[2017-10-09 09:35] LABS: Calcium 8.7 mg/dL (8.6-10.3); Potassium 3.9 mEq/L (3.5-5.1)
[2017-10-09] MEDS ORDERED: ROPIVACAINE HCL/PF 0.5% 30 ML VIAL ONE (15:57)
[2017-10-09] MEDS ORDERED: *HR* Succinylcholine 200 MG/10 ML VIAL IVP ONE (15:59)
[2017-10-09] MEDS ORDERED: *HR* Midazolam HCl 2 MG/2 ML VIAL ONE (15:59)
[2017-10-09] MEDS ORDERED: Lidocaine -MPF 2% 2 ML VIAL ONE (15:59)
[2017-10-09] MEDS ORDERED: *HR* FentaNYL (PF) 100 MCG/2 ML VIAL ONE (15:59)
[2017-10-09] MEDS ORDERED: *HR* Propofol 200 MG/20 ML VIAL IVP ONE (15:59)
--- NOTE | 2017-10-09 16:25 | Anesthesia Procedures ---
Date of Encounter: 10/09/17 Time of Encounter: 16:24 Procedures: Anesthesia - Nerve Block Procedure Date: 10/09/17 Time: 16:25 Allergies/Adv Reactions: azithromycin Allergy (Verified 10/08/17 09:36) Hives cephalexin [From Keflex] Allergy (Verified 10/08/17 09:36) Hives chlorhexidine [From Hibiclens] Allergy (Verified 10/08/17 09:36) Hives gabapentin Allergy (Verified 10/08/17 09:36) Hives Tizanidine Allergy (Verified 10/08/17 09:36) Hives Pre-op Diagnosis: right humerus fx Surgical Procedure: orif right humerus Checklist: Correct Patient Identifier, History checked Correct side: Right Blood Thinner: No Monitor Applied: EKG, BP, Pulse Oximetry Supplemental Oxygen via Nasal Cannula (L/min): 2 Sedation: Versed (mg): 2 Sedation: Fentanyl (mcg): 75 Indication: Post Op Analgesia Pre-op Neuro Deficits: No Block Type: Supraclavicular Catheter placed: No Sterile Technique: Yes Ultrasound used: Yes Anatomy identified: Yes Visual spread of Local: Yes Neuro Stimulation: No Blood on Needle Aspiration: No Smooth Injection of Local: Yes Pain with Injection of Local: No Prep: Chlorhexadine Needle: 22 x 50 mm Stimuplex Local: Ropivacaine (0.2%) Volume (cc): 30 Number of Attempts: 1 Complications: None/effective block
[2017-10-09] MEDS ORDERED: *HR* PHENYLEPHRINE 1,000 MCG/10 ML SYRINGE IVP ONE ×2 (16:43→17:26)
[2017-10-09] MEDS ORDERED: EPHEDrine 50 MG/ML VIAL ONE (16:52)
[2017-10-09] MEDS ORDERED: Ondansetron 4 MG/2 ML VIAL IVP ONE (16:55)
[2017-10-09] MEDS ORDERED: *HR* Meperidine 25 MG/ML SYRINGE IVP PRN (16:55)
[2017-10-09] MEDS ORDERED: MORPHINE SUL Oral CONC 10 MG/0.5 ML ORAL.SYG SL PRN (16:55)
[2017-10-09] MEDS ORDERED: *HR* OxyCODONE Immed Rel 5 MG TABLET PO PRN (16:55)
[2017-10-09] MEDS ORDERED: *HR* Promethazine 25 MG/ML VIAL IVP PRN (16:55)
--- NOTE | 2017-10-09 18:19 | Orthopedic Operative Note ---
Date of procedure: 10/09/17 Pre-op diagnosis: Displaced comminuted long oblique humerus fracture Post-op diagnosis: same Procedure: Procedure: open reduction internal fixation Humerus right humerus Estimated blood loss: 500 cc Hardware: 8 hole Synthes proximal humeral locking plate, 10 3.5 screws 3 Ar[employer]rex [place] cerclage fiber tapes Procedural Notes: Comminuted displaced oblique multiple fragments extending from proximal third to distal third Operative procedure: The patient was brought to the operating room and placed on the operating room table. After general anesthesia was administered the operative arm was prepped and draped in the sterile surgical fashion The patient received IV antibiotics prior to skin incision. A standard extended deltopectoral approach was made to the humerus, the incision is made to the skin and subcutaneous tissue. Incision was taken all the way down to the elbow. Distally the interval between the brachialis and brachioradialis was developed and the radial nerve was identified and protected throughout the case. Focus was on the distal fragment first. This was mobilized irrigated and cleaned of fracture hematoma. It was then reduced under direct vision all the nerve was protected and held in place with bone holding forceps. 2 Ar[employer]rex [place] cerclage fiber tapes were passed under direct vision and secured. This gave excellent patella ring fixation. This construct was then fixed to the proximal fragment again with a Ar[employer]rex [place] cerclage fiber tape. Position of the hardware was found to be well positioned, fluoroscopic evaluation showed excellent reduction. An 8 hole Synthes proximal humeral locking plate was approximated to the anterolateral surface was fixed in compression. Position of the hardware was confirmed to be acceptable with fluoroscopic evaluation and direct inspection. The nerve was protected during placement of the plate and fixation. It was fixed with a second compression screw and then fixed with a locking screws. Position of the hardware as well as fracture reduction on direct inspection and fluoroscopic evaluation was found to be excellent. The wound was irrigated. The deep tissue was closed with a running #2 PDS suture case tissues irrigated and the next layer was closed with 0 PDS suture superficially with 0 PDS suture and 0 Monocryl suture, skin was closed with skin zach. Patient placed in a posterior splint. The patient was extubated, and then transferred to the recovery room in stable condition. Anesthesia: GETA Surgeon: Jesse Galeano Was there an assistant manager bilingual present: No Estimated blood loss (cc): 500 Condition: stable Disposition: PACU
[2017-10-09 18:55] LABS: Hematocrit 26.5 % (35.3-44.9); Hemoglobin 8.3 g/dL (11.5-15.4)
--- NOTE | 2017-10-09 19:07 | Anesthesia Evaluation Post Op ---
Date of Encounter: 10/09/17 Time of Encounter: 19:06 - Vital Signs Vital Signs: Last Vital Signs Temp 97.0 F L 10/09/17 18:55 Pulse 86 10/09/17 18:55 Resp 20 10/09/17 18:55 BP 138/72 10/09/17 18:55 Pulse Ox 97 10/09/17 18:55 - Lungs Lungs: Clear Ascult./Percussion - Airway Airway: Non-obstructed - Cardiovascular Regular Rate - Mental Status Mental Status: Alert & Oriented, Answers Appropriately - Pain Pain Scale: 5 - Nausea Vomiting Nausea Vomiting: Not Present - Hydration Hydration: Ice chips - Discharge PostOp Status: Transfer Patient to floor
[2017-10-09] MEDS ORDERED: Acetaminophen 325 MG TABLET PO PRN (19:26)
[2017-10-09] MEDS ORDERED: *HR* Dextrose 50 % in Water (Syg) 50 ML SYRINGE IVP PRN (19:26)
[2017-10-09] MEDS ORDERED: Ringers Solution, Lactated 1,000 ML IVC SCH (19:26)
[2017-10-09] MEDS ORDERED: Naloxone 0.4 MG/ML INJ IVP PRN ×2 (19:26)
[2017-10-09] MEDS ORDERED: Sennosides 8.6 MG TABLET PO PRN (19:26)
[2017-10-09] MEDS ORDERED: D5% in Water 1,000 ML IVC PRN (19:26)
[2017-10-09] MEDS ORDERED: MOM Conc 10 ML UD.LIQ PO PRN (19:26)
[2017-10-09] MEDS ORDERED: Ondansetron 4 MG/2 ML VIAL IVP PRN (19:26)
[2017-10-09] MEDS ORDERED: Temazepam 15 MG CAPSULE PO PRN (19:26)
[2017-10-09] MEDS ORDERED: Dextrose Gel 15 GM/37.5 ML TUBE PO PRN ×2 (19:26)
[2017-10-09] MEDS: Clindamycin 900 MG/50 ML 900 MG/50 ML IV.SOLN IVPB SCH (20:48)
[2017-10-10] MEDS: Clindamycin 900 MG/50 ML 900 MG/50 ML IV.SOLN IVPB SCH (01:45)
[2017-10-10] MEDS: *HR* HYDROcodone/Acet 5/325 mg TABLET PO PRN ×4 (01:46→23:57)
[2017-10-10 05:47] LABS: Hematocrit 21.7 % (35.3-44.9); Hemoglobin 6.9 g/dL (11.5-15.4)
[2017-10-10] MEDS: *HR* Enoxaparin 40 MG/0.4 ML SYRINGE SQ SCH (06:38)
[2017-10-10] MEDS: traMADol 50 MG TABLET PO PRN ×3 (06:38→20:30)
[2017-10-10] MEDS: Pregabalin 25 MG CAPSULE PO SCH ×2 (08:14→20:30)
[2017-10-10] MEDS: Insulin LISPRO 300 UNITS/3 ML VIAL SQ SCH ×3 (08:20→17:38)
--- NOTE | 2017-10-10 08:26 | Orthopedics Progress Note ---
Date of Encounter: 10/10/17 Time of Encounter: 08:25 Subjective Interval history: CPatient was seen this morning doing well without complaints. Afebrile vital signs stable. Operative extremity: Neurovascularly intact Dressing clean dry and intact Calves nontender Assessment and plan: Continue with postoperative care Hemoglobin 6.9 transfuse 2 units patient okay for discharge after receiving blood. Objective Vital signs: Vital Signs Temp Pulse Resp BP Pulse Ox 10/10/17 07:48 98.9 F 87 20 129/64 99 10/10/17 05:01 99.1 F 90 18 92/44 93 10/09/17 23:43 98.9 F 93 17 100/51 97 10/09/17 22:14 98.1 F 95 17 114/46 93 10/09/17 21:10 18 114/46 94 10/09/17 20:10 98.8 F 87 18 138/78 99 10/09/17 19:40 97.9 F 90 18 133/55 99 10/09/17 19:05 85 18 134/65 98 10/09/17 18:55 97.0 F L 86 20 138/72 97 10/09/17 18:45 84 22 129/63 96 10/09/17 18:35 86 20 155/69 96 10/09/17 18:25 97.2 F L 94 21 146/74 93 10/09/17 14:51 98.7 F 89 16 146/78 99 10/09/17 11:15 98.4 F 93 18 151/71 98 Intake and Output 10/09/17 10/10/17 10/10/17 23:59 07:59 15:59 Intake Total 530 / 530 240 / 240 Output Total 420 / 420 1100 / 1100 Balance 110 / 110 -860 / -860 Intake: IV Fluids 50 / 50 Cleocin Premix 900 MG/50 ML 900 50 / 50 mg In 50 ml @ 50 mls/hr IVPB Q8HR [facility] Rx#:[id number] Oral 480 / 480 240 / 240 Output: Urine 500 / 500 Estimated Blood Loss 20 / 20 Urine Amount (Catheter) 400 / 400 Catheter 600 / 600 Other: Weight 91 kg Blood Glucose* 197 216 Patient Weight 10/10/17 23:59 Weight 91 kg - Labs CBC & BMP: 10/10/17 04:59 10/09/17 06:25 Labs: Abnormal lab results RBC 2.84 M/mcL (3.82-4.97) L 10/09/17 06:25 Hgb 6.9 g/dL (11.5-15.4) L 10/10/17 04:59 Hct 21.7 % (35.3-44.9) L 10/10/17 04:59 RDW 15.0 % (11.5-14.5) H 10/09/17 06:25 Chloride 109 mEq/L (98-107) H 10/09/17 06:25 Creatinine 1.26 mg/dL (0.60-1.20) H 10/09/17 06:25 Est GFR ( Amer) 51 (> 60) L 10/09/17 06:25 Est GFR (Non-Af Amer) 42 (> 60) L 10/09/17 06:25 Glucose 147 mg/dL (70-105) H 10/09/17 06:25 POC Glucose 192 (58-89) H 10/09/17 11:58 - VTE Documentation of Mechanical Device: Venous foot pump, device Consult Discharge Plan - Plan Referrals: Cherelle Verma MD [Primary Care Provider] -
[2017-10-10] MEDS ORDERED: Furosemide 20 MG/2 ML VIAL IVP PRN (09:11)
[2017-10-10] MEDS ORDERED: 0.9 % Sodium Chloride 250 ML IVC SCH (09:15)
[2017-10-10] MEDS ORDERED: Furosemide 20 MG/2 ML VIAL IVP ONE (10:03)
--- NOTE | 2017-10-10 10:04 | Internal Med Progress Note ---
<Perez Riley - Last Filed: 10/10/17 13:03> Date of Encounter: 10/10/17 Time of Encounter: 09:50 - Assessment and plan (1) Right humeral fracture Current Visit: Yes Status: Acute Assessment and plan: Right humeral fracture s/p ORIF Patient did have post-procedural anemia, which requires 1U transfusion Patient has PRN pain medications ordered which adequately control acute pain Qualifiers: Encounter type: initial encounter Humerus Location: surgical neck Fracture type: closed Fracture morphology: unspecified fracture morphology Fracture alignment: nondisplaced Qualified Code(s): S42.214A - Unspecified nondisplaced fracture of surgical neck of right humerus, initial encounter for closed fracture (2) CAD (coronary artery disease) Current Visit: Yes Status: Chronic Assessment and plan: Hx of CAD s/p MA 2006 No chest pain at this time Continue home meds Qualifiers: Coronary Disease-Associated Artery/Lesion type: [place] artery [place] vs. transplanted heart: [place] heart Associated angina: without angina Qualified Code(s): I25.10 - Atherosclerotic heart disease of [place] coronary artery without angina pectoris (3) HTN (hypertension) Current Visit: Yes Status: Chronic Assessment and plan: Resume home meds Qualifiers: Hypertension type: essential hypertension Qualified Code(s): I10 - Essential (primary) hypertension (4) Obesity Current Visit: Yes Status: Chronic Assessment and plan: Patient has been counseled on weight loss Qualifiers: Obesity type: due to excess calories Obesity classification: unspecified obesity classification Serious obesity comorbidity presence: unspecified whether serious comorbidity present Qualified Code(s): E66.09 - Other obesity due to excess calories (5) Hyperlipidemia Current Visit: No Status: Chronic Assessment and plan: Hyperlipidemia, chronic LDL and HDL cholesterol in appropriate ranges Continue home statin Qualifiers: Hyperlipidemia type: pure hypercholesterolemia Qualified Code(s): E78.00 - Pure hypercholesterolemia, unspecified; E78.0 - Pure hypercholesterolemia (6) Diabetes 1.5, managed as type 2 Current Visit: Yes Status: Chronic Assessment and plan: Apparently well controlled DM1.5 We will use SSI for management of BG during admission (7) CKD (chronic kidney disease) Current Visit: Yes Status: Chronic Assessment and plan: CKD stage 3B, Stable Serum Cr 1.46, baseline 1.3. eGFR 38 Avoid nephrotoxic agents, continue to monitor renal function Qualifiers: Chronic kidney disease stage: stage 2 (mild) Qualified Code(s): N18.2 - Chronic kidney disease, stage 2 (mild) (8) Pre-operative examination for internal medicine Current Visit: Yes Status: Acute (9) DVT prophylaxis Current Visit: Yes Status: Acute - Subjective Interval history: The patient was resting comfortably in a bedside chair at time of examination. She is currently wearing a sling on her right arm. The patient continues to have diffuse pain, however he seems to tolerate it better today than she has previously. She does admit to constipation with lack of BM since arrival at the hospital. - Constitutional Vitals: Temp Pulse Resp BP Pulse Ox 98.9 F 87 20 129/64 99 10/10/17 07:48 10/10/17 07:48 10/10/17 07:48 10/10/17 07:48 10/10/17 07:48 Exam: Gen.: Vitals noted. No acute distress. AAOx3 HEENT: PERRL/EOMI, oropharynx clear, Normocephalic, atraumatic Neck: Supple. No adenopathy. Cardiac: RRR, no murmur, +S1/S2 Pulmonary: B/L rales R>L Abdomen: soft, nontender, BS noted, no guarding Back: Tender throughout thoracic and lumbar spine, multiple incision site scars found MSK: ROM intact, no joint swelling noted. Right UE is found in sling, neurovascular bundle intact, pink fingers with normal sensation and movement. Extremities: 1+ LE edema b/l with tenderness circumferentially around legs Neuro: A&Ox3, moves all extremities, no focal deficits Psych: Appropriate mood and behavior Internal Medicine: Result - Labs CBC & Chem 7: 10/10/17 04:59 10/10/17 11:23 Labs: Short CBC 10/09/17 10/10/17 Range/Units 18:48 04:59 Hgb 8.3 L 6.9 L (11.5-15.4) g/dL Hct 26.5 L 21.7 L (35.3-44.9) % - Impressions Impressions Humerus CT 10/09/17 00:00 IMPRESSION: 1. Decreased bone mineral density. 2. Global moderate rotator cuff muscular atrophy with findings highly suspicious for full-thickness retracted supraspinatus tear. 3. Acromioclavicular and glenohumeral arthropathy with mild superior glenohumeral subluxation. No acute scapular fracture. 4. Comminuted multifocal left humerus fracture. At the proximal metaphysis to the mid diaphysis there is a mildly displace in apex medial angulated fracture. In the mid to distal humeral diaphysis there is a displaced and mild apex posterior angulated fracture. 5. Normal elbow alignment with osteoarthritis. Nonspecific elbow effusion which may represent degenerative effusion versus a subtle nondisplaced radial head fracture which is not identified by CT though there is motion artifact. D/ / 10/09/2017 13:34:11 Ant Coates MD / marva Interpreting Provider: Ant Coates MD Humerus X-Ray 10/09/17 16:25 IMPRESSION: 1. ORIF proximal left humerus fracture with plate and multiple screws achieving near-anatomic alignment. 2. No unexpected retained radiopaque foreign body. 3. No immediate postprocedural complication radiographically evident D/ / Zana Hoffman / Zana Hoffman Interpreting Provider: aZna Hoffman Fluoroscopy 10/09/17 16:40 IMPRESSION: Intraprocedural fluoroscopic spot images as above. See separate procedure report for more information. D/ / Mando Daniels MD / Mando Daniels MD Interpreting Provider: Mando Daniels MD Humerus X-Ray 10/09/17 16:40 IMPRESSION: Intraprocedural fluoroscopic spot images as above. See separate procedure report for more information. D/ / Mando Daniels MD / Mando Daniels MD Interpreting Provider: Mando Daniels MD - VTE Documentation of Mechanical Device: Venous foot pump, device Consult Discharge Plan - Plan Referrals: Cherelle Verma MD [Primary Care Provider] - <Enzo Forbes - Last Filed: 10/10/17 14:02> Date of Encounter: 10/10/17 - Assessment and plan (1) Right humeral fracture Current Visit: Yes Status: Acute Qualifiers: Encounter type: initial encounter Humerus Location: surgical neck Fracture type: closed Fracture morphology: unspecified fracture morphology Fracture alignment: nondisplaced Qualified Code(s): S42.214A - Unspecified nondisplaced fracture of surgical neck of right humerus, initial encounter for closed fracture (2) CAD (coronary artery disease) Current Visit: Yes Status: Chronic Qualifiers: Coronary Disease-Associated Artery/Lesion type: [place] artery [place] vs. transplanted heart: [place] heart Associated angina: without angina Qualified Code(s): I25.10 - Atherosclerotic heart disease of [place] coronary artery without angina pectoris (3) HTN (hypertension) Current Visit: Yes Status: Chronic Qualifiers: Hypertension type: essential hypertension Qualified Code(s): I10 - Essential (primary) hypertension (4) Obesity Current Visit: Yes Status: Chronic Qualifiers: Obesity type: due to excess calories Obesity classification: unspecified obesity classification Serious obesity comorbidity presence: unspecified whether serious comorbidity present Qualified Code(s): E66.09 - Other obesity due to excess calories (5) Hyperlipidemia Current Visit: No Status: Chronic Qualifiers: Hyperlipidemia type: pure hypercholesterolemia Qualified Code(s): E78.00 - Pure hypercholesterolemia, unspecified; E78.0 - Pure hypercholesterolemia (6) Diabetes 1.5, managed as type 2 Current Visit: Yes Status: Chronic (7) CKD (chronic kidney disease) Current Visit: Yes Status: Chronic Qualifiers: Chronic kidney disease stage: stage 2 (mild) Qualified Code(s): N18.2 - Chronic kidney disease, stage 2 (mild) (8) Pre-operative examination for internal medicine Current Visit: Yes Status: Acute (9) DVT prophylaxis Current Visit: Yes Status: Acute - Constitutional Vitals: Temp Pulse Resp BP Pulse Ox 98.6 F 90 18 122/52 94 10/10/17 12:22 10/10/17 12:22 10/10/17 12:22 10/10/17 12:22 10/10/17 12:22 Internal Medicine: Result - Labs CBC & Chem 7: 10/10/17 04:59 10/10/17 11:23 Labs: Short CBC 10/09/17 10/10/17 Range/Units 18:48 04:59 Hgb 8.3 L 6.9 L (11.5-15.4) g/dL Hct 26.5 L 21.7 L (35.3-44.9) % BMP 10/10/17 11:23 Sodium 137 Potassium 3.7 Chloride 103 Carbon Dioxide 21 L BUN 16 Creatinine 1.43 H Glucose 247 H Calcium 8.7 - Impressions Impressions Humerus CT 10/09/17 00:00 IMPRESSION: 1. Decreased bone mineral density. 2. Global moderate rotator cuff muscular atrophy with findings highly suspicious for full-thickness retracted supraspinatus tear. 3. Acromioclavicular and glenohumeral arthropathy with mild superior glenohumeral subluxation. No acute scapular fracture. 4. Comminuted multifocal left humerus fracture. At the proximal metaphysis to the mid diaphysis there is a mildly displace in apex medial angulated fracture. In the mid to distal humeral diaphysis there is a displaced and mild apex posterior angulated fracture. 5. Normal elbow alignment with osteoarthritis. Nonspecific elbow effusion which may represent degenerative effusion versus a subtle nondisplaced radial head fracture which is not identified by CT though there is motion artifact. D/ / 10/09/2017 13:34:11 Ant Coates MD / marva Interpreting Provider: Ant Coates MD Humerus X-Ray 10/09/17 16:25 IMPRESSION: 1. ORIF proximal left humerus fracture with plate and multiple screws achieving near-anatomic alignment. 2. No unexpected retained radiopaque foreign body. 3. No immediate postprocedural complication radiographically evident D/ / Zana Hoffman / Zana Hoffman Interpreting Provider: Zana Hoffman Fluoroscopy 10/09/17 16:40 IMPRESSION: Intraprocedural fluoroscopic spot images as above. See separate procedure report for more information. D/ / Mando Daniels MD / Mando Daniels MD Interpreting Provider: Mando Daniels MD Humerus X-Ray 10/09/17 16:40 IMPRESSION: Intraprocedural fluoroscopic spot images as above. See separate procedure report for more information. D/ / Mando Daniels MD / Mando Daniels MD Interpreting Provider: Mando Daniels MD - Attending Attestation I examined this patient and my medical decision-making was reviewed with the Resident Physician. I agree with the documented findings, disposition and treatment plan as described except to the extent set forth below. Seen and examined at the bedside Patient with multiple nonspecific complaints, also has chronic pain due to multiple back surgeries and left hip replacement surgery. POD 1 s/p R humeral fracture ORIF Physical exam reveals a morbidly obese woman, not in any form of distress, hemodynamically stable, RUE neurovascularly intact, chest auscultation with basal crackles , no pedal edema, abdomen is soft and benign Labs reviewed Acute blood loss anemia, Plan give 1 units RBCs with lasix Continue current management Monitor hb PTOT eval Rest of details as in the resident physician's documentation.
[2017-10-10] MEDS: Sennosides/Docusate Sodium TABLET PO SCH ×2 (12:15→20:30)
[2017-10-10 12:36] LABS: Calcium 8.7 mg/dL (8.6-10.3); Potassium 3.7 mEq/L (3.5-5.1)
--- NOTE | 2017-10-10 14:33 | Event Note ---
Date of Encounter: 10/10/17 Time of Encounter: 14:31 10/09/17 Pre-op diagnosis: Displaced comminuted long oblique humerus fracture Post-op diagnosis: same Procedure: Procedure: open reduction internal fixation Humerus right humerus Patient doing well; difficulty with pain control. Posterior splint with arm sling - to stay in place. Underlying opsite dressing with zach to incision. No shoulder motion, No elbow ROM Focus on hand and cutlet maker pork ROM, PROM and OT. ICE and elevate extremity frequently. Encourage ambulation. Discharge to ECF on Friday, possibly friday
--- NOTE | 2017-10-10 14:36 | Physician Discharge Referral ---
ExtendedCare Referral Info Transfer To: [facility] Provider in Charge: Provider in Charge after Transfer: PCP Institutional Level of Care: Skilled - Diagnosis (1) Status post open reduction with internal fixation of fracture Priority: Primary Status: Acute (2) Right humeral fracture Priority: Primary Status: Acute (3) CAD (coronary artery disease) Priority: Secondary Status: Chronic (4) HTN (hypertension) Priority: Secondary Status: Chronic (5) Obesity Priority: Secondary Status: Chronic (6) Hyperlipidemia Priority: Secondary Status: Chronic (7) Diabetes 1.5, managed as type 2 Priority: Secondary Status: Chronic (8) CKD (chronic kidney disease) Priority: Secondary Status: Chronic Expected Duration of Placement: < 30 days Prognosis: Good Aware of Diagnosis: Patient Aware of Prognosis: Patient - Transfer Medications Prescriptions: OxyCODONE Immed Rel [Roxicodone 5 MG] 5 mg PO Q4HR PRN 5 Days #30 tablet PRN Reason: Severe Pain Home Medications: Aspirin [Lo-Dose Aspirin EC] 81 mg PO DAILY 10/07/17 [History] Atenolol [Tenormin] 25 mg PO DAILY 10/07/17 [History] Atorvastatin [Lipitor] 80 mg PO HS 10/07/17 [History] Pregabalin [Lyrica] 25 mg PO BID 10/07/17 [History] Sertraline [Zoloft] 100 mg PO DAILY 10/07/17 [History] Biotin 1,000 mcg PO DAILY 10/08/17 [History] Ergocalciferol (VITAMIN D2) [Vitamin D2] 50,000 unit PO QWEEK 10/08/17 [History] Famotidine [Pepcid] 20 mg PO DAILY 10/08/17 [History] Ferrous Sulfate [Iron] 325 mg PO DAILY 10/08/17 [History] Glimepiride [Amaryl] 2 mg PO QPM 10/08/17 [History] Glimepiride [Amaryl] 4 mg PO QAM 10/08/17 [History] HYDROcodone/Acet 5/325 mg [[place] 5-325 mg] 1 tab PO BID PRN 10/08/17 [History] Pioglitazone [Actos] 30 mg PO DAILY 10/08/17 [History] SitaGLIPtin [Januvia] 25 mg PO DAILY 10/08/17 [History] Sodium Bicarbonate 325 mg PO BID 10/08/17 [History] OxyCODONE Immed Rel [Roxicodone 5 MG] 5 mg PO Q4HR PRN 5 Days #30 tablet [Rx] Allergies/Adverse Reactions: 3 Allergy/AdvReac Type Severity Reaction Status Date / Time azithromycin Allergy Hives Verified 10/08/17 09:36 cephalexin [From Keflex] Allergy Hives Verified 10/08/17 09:36 chlorhexidine Allergy Hives Verified 10/08/17 09:36 [From Hibiclens] gabapentin Allergy Hives Verified 10/08/17 09:36 Tizanidine Allergy Hives Verified 10/08/17 09:36 - Respiratory Orders None Smoking Cessation: Smoking cessation has been advised. For more information, call the [employer] Quit Line at 1-094-PFQA-NOW. - Ancillary Orders May use pressure relief devices daily prn, May go on JOSE w/family/respon democrat w /meds at nurse discretion PRN, May consult with Dentist, Vice President Sales, Septic Pump Truck Driver PRN - Mobility Orders Chair, Ambulate - Rehabiliation Orders Rehab Potential: Good Rehab Orders: Evaluation for Physical Therapy, Evaluation for Occupational Therapy - Treatments Skin tear care topically daily PRN per policy List/Other: 10/09/17 Pre-op diagnosis: Displaced comminuted long oblique humerus fracture Post-op diagnosis: same Procedure: Procedure: open reduction internal fixation Humerus right humerus Posterior splint with arm sling - to stay in place. Underlying opsite dressing with zach to incision. NWB to RUE No shoulder motion, No elbow ROM Focus on hand and regional intermodal truck driver ROM, PROM and OT. ICE and elevate extremity frequently. Encourage ambulation. CERTIFICATION: I certify that the transfer of the above named patient to an Extended Care Facility is necessary for the continuing treatment of the diagnosis listed. The above information is true and accurate reflection of patient's current condition. Confidential - Redisclosure prohibited without a patient's written consent.
[2017-10-10 16:04] LABS: Basophils % 0.2 %; Eosinophils # 0.1 K/mcL (0.0-0.6); Eosinophils % 0.6 %; Hematocrit 27.9 % (35.3-44.9); Hemoglobin 8.9 g/dL (11.5-15.4); Immature Granulocytes % 0.3 % (0-4); Lymphocytes # 0.7 K/mcL (0.6-4.6); Lymphocytes % 7.3 %; Mean Corpuscular HGB Conc 31.9 g/dL (31.6-35.5); Mean Corpuscular Hemoglobin 30.3 pg (28.0-33.3); Mean Corpuscular Volume 94.9 fL (83.0-100.0); Mean Platelet Volume 11.6 fL (9.4-12.4); Monocytes # 1.2 K/mcL (0.0-1.3); Monocytes % 13.4 %; Platelet Count 164 K/mcL (140-400); Red Blood Count 2.94 M/mcL (3.82-4.97); Red Cell Distribution Width 16.2 % (11.5-14.5); Segmented Neutrophils % 78.2 %
[2017-10-10] MEDS ORDERED: Insulin LISPRO 300 UNITS/3 ML VIAL SQ SCH (23:45)
[2017-10-11] MEDS: *HR* Enoxaparin 40 MG/0.4 ML SYRINGE SQ SCH (05:55)
[2017-10-11] MEDS: traMADol 50 MG TABLET PO PRN ×2 (05:55→16:20)
[2017-10-11 06:24] LABS: Basophils % 0.4 %; Eosinophils # 0.2 K/mcL (0.0-0.6); Eosinophils % 2.7 %; Hematocrit 23.9 % (35.3-44.9); Immature Granulocytes % 0.7 % (0-4); Lymphocytes # 1.2 K/mcL (0.6-4.6); Lymphocytes % 13.7 %; Mean Corpuscular HGB Conc 33.5 g/dL (31.6-35.5); Mean Corpuscular Hemoglobin 30.9 pg (28.0-33.3); Mean Corpuscular Volume 92.3 fL (83.0-100.0); Mean Platelet Volume 11.5 fL (9.4-12.4); Monocytes # 1.2 K/mcL (0.0-1.3); Monocytes % 13.7 %; Neutrophils # 6.1 K/mcL (1.6-8.9); Platelet Count 172 K/mcL (140-400); Red Blood Count 2.59 M/mcL (3.82-4.97); Red Cell Distribution Width 16.6 % (11.5-14.5); Segmented Neutrophils % 68.8 %
[2017-10-11 06:33] LABS: Calcium 8.5 mg/dL (8.6-10.3); Potassium 3.5 mEq/L (3.5-5.1)
[2017-10-11] MEDS: Sennosides/Docusate Sodium TABLET PO SCH (09:18)
[2017-10-11] MEDS: Pregabalin 25 MG CAPSULE PO SCH (09:18)
[2017-10-11] MEDS: Insulin LISPRO 300 UNITS/3 ML VIAL SQ SCH ×2 (09:18→12:49)
--- NOTE | 2017-10-11 09:53 | Discharge Summary ---
<Perez Riley - Last Filed: 10/11/17 11:35> - NOTES TO OUTPATIENT PROVIDER Notes to Outpatient Provider: The patient has continued to have LLUVIA throughout hospital admission. I will give an ambulatory order for BMP which should be followed after discharge. Date of Encounter: 10/11/17 Time of Encounter: 09:00 - Discharge Diagnosis (1) Right humeral fracture Priority: Primary Status: Acute Qualifiers: Encounter type: initial encounter Humerus Location: surgical neck Fracture type: closed Fracture morphology: unspecified fracture morphology Fracture alignment: nondisplaced Qualified Code(s): S42.214A - Unspecified nondisplaced fracture of surgical neck of right humerus, initial encounter for closed fracture (2) CAD (coronary artery disease) Priority: Secondary Status: Chronic Qualifiers: Coronary Disease-Associated Artery/Lesion type: [place] artery [place] vs. transplanted heart: [place] heart Associated angina: without angina Qualified Code(s): I25.10 - Atherosclerotic heart disease of [place] coronary artery without angina pectoris (3) HTN (hypertension) Priority: Secondary Status: Chronic Qualifiers: Hypertension type: essential hypertension Qualified Code(s): I10 - Essential (primary) hypertension (4) Obesity Priority: Secondary Status: Chronic Qualifiers: Obesity type: due to excess calories Obesity classification: unspecified obesity classification Serious obesity comorbidity presence: unspecified whether serious comorbidity present Qualified Code(s): E66.09 - Other obesity due to excess calories (5) Hyperlipidemia Priority: Secondary Status: Chronic Qualifiers: Hyperlipidemia type: pure hypercholesterolemia Qualified Code(s): E78.00 - Pure hypercholesterolemia, unspecified; E78.0 - Pure hypercholesterolemia (6) Diabetes 1.5, 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 Fagan is a 71 year old female with a history of arthritis, CK D, CAD with [place] in 2006, history of GI bleed, hypertension, hyperlipidemia, obesity, diabetes who suffered a mechanical fall and sustained a right humeral fracture with no loss of consciousness. She did not hit her head at the time of the fall. While admitted, it was noted the patient did have an anemia which appeared to be chronic in nature, however became acutely worsened following surgical procedure due to acute blood loss. She did require transfusion of 1 unit of blood, however has remained stable since that time. Her pain levels have been appropriately controlled with current medication regimen and she should continue this regimen temporarily. Additionally, PT and OT did evaluate the patient and I determine that ECF would probably be the best location for her after discharge. One complication of the patient did say swell in the hospital was worsening of CK D status, with most recent serum creatinine of 1.45. Although she does have a baseline CK B, this is above her baseline. We did diurese the patient yesterday which could contribute to some of the worsening status, however she will need follow-up with primary care regarding her worsening renal function. We will discharge this patient to ECF for rehabilitation services. Discharge discussed with: patient - Time Spent with Patient Total time spent providing and/or coordinating discharge services: - Discharge Medications Prescriptions: OxyCODONE Immed Rel [Roxicodone 5 MG] 5 mg PO Q4HR PRN 5 Days #30 tablet PRN Reason: Severe Pain Home Medications: Aspirin [Lo-Dose Aspirin EC] 81 mg PO DAILY 10/07/17 [History] Atenolol [Tenormin] 25 mg PO DAILY 10/07/17 [History] Atorvastatin [Lipitor] 80 mg PO HS 10/07/17 [History] Pregabalin [Lyrica] 25 mg PO BID 10/07/17 [History] Sertraline [Zoloft] 100 mg PO DAILY 10/07/17 [History] Biotin 1,000 mcg PO DAILY 10/08/17 [History] Ergocalciferol (VITAMIN D2) [Vitamin D2] 50,000 unit PO QWEEK 10/08/17 [History] Famotidine [Pepcid] 20 mg PO DAILY 10/08/17 [History] Ferrous Sulfate [Iron] 325 mg PO DAILY 10/08/17 [History] Glimepiride [Amaryl] 2 mg PO QPM 10/08/17 [History] Glimepiride [Amaryl] 4 mg PO QAM 10/08/17 [History] HYDROcodone/Acet 5/325 mg [[place] 5-325 mg] 1 tab PO BID PRN 10/08/17 [History] Pioglitazone [Actos] 30 mg PO DAILY 10/08/17 [History] SitaGLIPtin [Januvia] 25 mg PO DAILY 10/08/17 [History] Sodium Bicarbonate 325 mg PO BID 10/08/17 [History] OxyCODONE Immed Rel [Roxicodone 5 MG] 5 mg PO Q4HR PRN 5 Days #30 tablet [Rx] Acetaminophen [Tylenol] 650 mg PO Q6HR PRN tablet 10/11/17 [Rx] Enoxaparin [Lovenox] 40 mg SQ 0600 11 Days #0 syringe 10/11/17 [Rx] Ondansetron [Zofran] 4 mg IVP Q6HR PRN vial 10/11/17 [Rx] Sennosides/Docusate Sodium [Senna Plus] 1 each PO BID tablet 10/11/17 [Rx] Allergies/Adverse Reactions: 3 Allergy/AdvReac Type Severity Reaction Status Date / Time azithromycin Allergy Hives Verified 10/08/17 09:36 cephalexin [From Keflex] Allergy Hives Verified 10/08/17 09:36 chlorhexidine Allergy Hives Verified 10/08/17 09:36 [From Hibiclens] gabapentin Allergy Hives Verified 10/08/17 09:36 Tizanidine Allergy Hives Verified 10/08/17 09:36 Date of admission: 10/07/17 21:17 Primary care physician: Cherelle Verma, Consults: 10/08/17 06:47 Consult to Director Of Engineering [CONS] Routine Reason for SW Consult: pt voicing strong concern about being able to take care of self at home. pt states she has no family or relatives. pt states she will not be able to care for herself on her own. 10/09/17 19:26 Consult to Occupational Therapy [CONS] Routine Comment: post shoulder surgery Reason for Consult: post shoulder surgery Does patient have active BEDREST order?: No Is patient medically & hemodynamically stable?: Yes Consult to Physical Therapy [CONS] Routine Comment: post shoulder surgery Reason for Consult: post shoulder surgery Does patient have active BEDREST order?: No Is patient medically & hemodynamically stable?: Yes RT Post Op Consult [CONS] Routine Discharging clinician: Perez Zamostny Anticipated date of discharge: 10/11/17 - Constitutional Vitals: Temp Pulse Resp BP Pulse Ox 99.0 F 95 15 107/48 91 10/11/17 06:50 10/11/17 06:50 10/11/17 06:50 10/11/17 06:50 10/11/17 06:50 Exam: Gen: Vitals noted. No acute distress. AAOx3 HEENT: Normocephalic, atraumatic Neck: Supple. No adenopathy. Cardiac: RRR, no murmur, +S1/S2 Pulmonary: CTAB Abdomen: soft, nontender, BS noted, no guarding Back: Tender throughout thoracic and lumbar spine, multiple incision site scars found MSK: ROM intact, no joint swelling noted. Right UE is found in sling, neurovascular bundle intact, pink fingers with normal sensation and movement. Extremities: 1+ LE edema b/l with tenderness circumferentially around legs Neuro: A&Ox3, moves all extremities, no focal deficits Psych: Appropriate mood and behavior - Patient Status Disposition: Transfer Inpatient Rehab Fac Condition: Good Functional capacity at discharge: wheelchair bound Overall status at discharge: patient is progressing back to baseline - Ambulatory Orders Ambulatory Orders: Basic Metabolic Panel [CHEM] Time Frame: 1 Week, Location: Any Complete Blood Count [HEME] Time Frame: 1 Week, Location: Any - Discharge Instructions Follow Up With: Jesse Galeano MD [Partnered Physician] - 11/05/17 4:55 pm Shalini Rogers, PAC [Physician Sp[employer] Press Helper] - 10/15/17 10:15 am Cherelle Verma MD [Primary Care Provider] - Bernard Waddell DO [Partnered Physician] - 01/06/18 1:45 pm Additional Instructions: Pain management per PCP and Ortho - Diet and Activity Activity: as per physical therapy Diet: advance to your usual diet - VTE Documentation of Mechanical Device: Venous foot pump, device <Enzo Forbes - Last Filed: 10/11/17 18:22> Date of Encounter: 10/11/17 - Discharge Diagnosis (1) Right humeral fracture Status: Acute Qualifiers: Encounter type: initial encounter Humerus Location: surgical neck Fracture type: closed Fracture morphology: unspecified fracture morphology Fracture alignment: nondisplaced Qualified Code(s): S42.214A - Unspecified nondisplaced fracture of surgical neck of right humerus, initial encounter for closed fracture (2) CAD (coronary artery disease) Status: Chronic Qualifiers: Coronary Disease-Associated Artery/Lesion type: [place] artery [place] vs. transplanted heart: [place] heart Associated angina: without angina Qualified Code(s): I25.10 - Atherosclerotic heart disease of [place] coronary artery without angina pectoris (3) HTN (hypertension) Status: Chronic Qualifiers: Hypertension type: essential hypertension Qualified Code(s): I10 - Essential (primary) hypertension (4) Obesity Status: Chronic Qualifiers: Obesity type: due to excess calories Obesity classification: unspecified obesity classification Serious obesity comorbidity presence: unspecified whether serious comorbidity present Qualified Code(s): E66.09 - Other obesity due to excess calories (5) Hyperlipidemia Status: Chronic Qualifiers: Hyperlipidemia type: pure hypercholesterolemia Qualified Code(s): E78.00 - Pure hypercholesterolemia, unspecified; E78.0 - Pure hypercholesterolemia (6) Diabetes 1.5, managed as type 2 Status: Chronic (7) CKD (chronic kidney disease) Status: Chronic Qualifiers: Chronic kidney disease stage: stage 2 (mild) Qualified Code(s): N18.2 - Chronic kidney disease, stage 2 (mild) (8) Pre-operative examination for internal medicine Status: Acute (9) DVT prophylaxis Status: Acute Hospital course: Ms. Fagan is a 71 year old female - Time Spent with Patient Total time spent providing and/or coordinating discharge services: Date of admission: 10/07/17 21:17 Primary care physician: Cherelle Verma, Consults: 10/08/17 06:47 Consult to Director Of Engineering [CONS] Routine Reason for SW Consult: pt voicing strong concern about being able to take care of self at home. pt states she has no family or relatives. pt states she will not be able to care for herself on her own. 10/09/17 19:26 Consult to Occupational Therapy [CONS] Routine Comment: post shoulder surgery Reason for Consult: post shoulder surgery Does patient have active BEDREST order?: No Is patient medically & hemodynamically stable?: Yes Consult to Physical Therapy [CONS] Routine Comment: post shoulder surgery Reason for Consult: post shoulder surgery Does patient have active BEDREST order?: No Is patient medically & hemodynamically stable?: Yes RT Post Op Consult [CONS] Routine - Constitutional Vitals: Temp Pulse Resp BP Pulse Ox 97.9 F 97 16 126/63 93 10/11/17 11:28 10/11/17 11:28 10/11/17 11:28 10/11/17 11:28 10/11/17 11:28 - Attending Attestation I examined this patient and my medical decision-making was reviewed with the Resident Physician. I agree with the documented findings, disposition and treatment plan as described except to the extent set forth below.
[2017-10-11 12:00] VITALS: BP 126/63
--- NOTE | 2017-10-12 10:00 | Electrocardiograph Report ---
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
== END 2017-10-11 17:52 | DRG 493 ==
LOC: 3NENU → SUATTDRO 21:17
PROVIDERS: ADMIT Student in an Organized Health Care Education/Training Program; ATTEND Internal Medicine

== ENCOUNTER 2021-12-27 21:41 | Inpatient (IN) ==
[2021-12-28] MEDS ORDERED: Perflutren Lipid Microsphere 1.3 ML in 0.9 % Sodium Chloride 8.7 ML IVP PRN (02:19)
[2021-12-28] MEDS ORDERED: Naloxone 0.4 MG/ML INJ IVP PRN (02:50)
[2021-12-28] MEDS ORDERED: Ondansetron 4 MG/2 ML VIAL IVP PRN (02:50)
[2021-12-28] MEDS ORDERED: Acetaminophen 325 MG TABLET PO PRN (02:50)
[2021-12-28] MEDS ORDERED: 0.9 % Sodium Chloride w KCl 20 MEQ/1,000 ML MLS IVC SCH (03:00)
[2021-12-28] MEDS: *HR* OxyCODONE Immed Rel 5 MG TABLET PO PRN ×2 (03:33→20:01)
[2021-12-28] MEDS ORDERED: Dextrose Gel 15 GM/37.5 ML TUBE PO PRN ×4 (04:37→16:34)
[2021-12-28] MEDS ORDERED: D5% in Water 1,000 ML IVC PRN ×2 (04:37→16:34)
[2021-12-28] MEDS ORDERED: *HR* Dextrose 50 % in Water (Syg) 50 ML SYRINGE IVP PRN ×2 (04:37→16:34)
[2021-12-28 05:02] LABS: Prothrombin Time 11.6 Seconds (9.4-12.1)
[2021-12-28 05:09] LABS: Activated Partial Thrombo Time 18.4 Seconds (26.0-36.0)
[2021-12-28 05:55] LABS: Bacteria,Urine Few per hpf (None-Few); Bilirubin,Urine Negative (Negative); Blood,Urine Trace (Negative); Clarity,Urine Turbid (Clear); Color,Urine Light-Yellow (Yellow); Glucose,Urine (UA) Normal (Normal); Ketones,Urine Negative (Negative); Leukocyte Esterase,Urine Large (Negative); Mucus,Urine Few per lpf (None-Few); Nitrite,Urine Positive (Negative); Protein,Urine Trace mg/dL (Neg-Trace); RBC,Urine 15-30 per hpf (0-3); Specific Gravity,Urine 1.013 (1.010-1.025); Squamous Epithelial Cell,Urine Few per hpf (None-Few); Urobilinogen,Urine Normal (Normal); WBC,Urine TNTC per hpf (0-3)
[2021-12-28] MEDS ORDERED: Insulin LISPRO 300 UNITS/3 ML VIAL SUBQ SCH (06:00)
[2021-12-28 07:41] LABS: Folate 16.5 ng/mL (3.0-16.0)
[2021-12-28] MEDS ORDERED: 0.9 % Sodium Chloride 1,000 ML IVC SCH (07:45)
[2021-12-28] MEDS: Famotidine 20 MG TABLET PO SCH ×2 (09:05→20:01)
[2021-12-28] MEDS: amLODIPine 5 MG TABLET PO SCH (09:05)
[2021-12-28] MEDS: Aspirin Enteric Coated 81 MG Tablet PO SCH (09:05)
[2021-12-28] MEDS: Nystatin POWDER 30 GM BOTTLE TP SCH ×4 (11:56→20:02)
[2021-12-28] MEDS: levoFLOXacin 500 MG/100 ML 500 MG/100 ML BAG IVPB SCH (18:30)
[2021-12-28] MEDS: Insulin LISPRO 300 UNITS/3 ML VIAL SUBQ SCH (20:03)
[2021-12-28 22:00] LABS: Magnesium 2.1 mg/dL (1.6-2.6)
[2021-12-28 22:02] LABS: Troponin I < 0.03 ng/mL (< 0.04)
[2021-12-28 22:16] LABS: Thyroid Stimulating Hormone 2.559 mcIU/mL (0.340-5.600)
[2021-12-28 22:31] LABS: Estimated Average Glucose 154 mg/dl
[2021-12-28] MEDS ORDERED: *HR* LORazepam 2 MG/ML VIAL IM ONE (22:55)
[2021-12-28] MEDS: Melatonin 3 MG TABLET PO SCH (23:22)
[2021-12-29 00:31] LABS: Alanine Aminotransferase 8 Units/L (7-52); Albumin 3.4 g/dL (3.5-5.7); Albumin/Globulin Ratio 0.9 (1.1-2.2); Alkaline Phosphatase 68 Units/L (34-104); Aspartate Amino Transferase 15 Units/L (13-39); BUN/Creatinine Ratio 14 (6-26); Bilirubin,Direct 0.1 mg/dL (0.0-0.2); Bilirubin,Indirect 0.5 mg/dL (0.0-1.0); Bilirubin,Total 0.6 mg/dL (0.3-1.0); Blood Urea Nitrogen 19 mg/dL (8-23); Calcium 8.7 mg/dL (8.6-10.3); Carbon Dioxide 21 mEq/L (23-29); Chloride 105 mEq/L (98-107); Globulin 3.8 g/dL (2.4-3.5); Glucose 187 mg/dL (70-105); Osmolality,Calculated 289 (280-300); Potassium 4.1 mEq/L (3.5-5.1); Sodium 136 mEq/L (136-145); Total Protein 7.2 g/dL (6.4-8.9); eGFR For African Americans 45 (> 60); eGFR For Non-African Americans 37 (> 60)
[2021-12-29 01:01] LABS: Basophils # 0.1 K/mcL (0.0-0.2); Basophils % 0.4 %; Eosinophils # 0.1 K/mcL (0.0-0.6); Eosinophils % 0.4 %; Hematocrit 30.3 % (35.3-44.9); Hemoglobin 9.5 g/dL (11.5-15.4); Immature Granulocytes % 0.4 % (0-4); Lymphocytes # 0.7 K/mcL (0.6-4.6); Lymphocytes % 5.6 %; Mean Corpuscular HGB Conc 31.4 g/dL (31.6-35.5); Mean Corpuscular Hemoglobin 30.4 pg (28.0-33.3); Mean Corpuscular Volume 96.8 fL (83.0-100.0); Mean Platelet Volume 11.1 fL (9.4-12.4); Monocytes # 0.9 K/mcL (0.0-1.3); Monocytes % 7.5 %; Neutrophils # 10.5 K/mcL (1.6-8.9); Platelet Count 368 K/mcL (140-400); Red Blood Count 3.13 M/mcL (3.82-4.97); Red Cell Distribution Width 14.4 % (11.5-14.5); Segmented Neutrophils % 85.7 %; White Blood Count 12.3 K/mcL (4.3-11.1)
[2021-12-29 03:41] LABS: A.calcoaceticus-baumannii cplx Not Detected (Not Detect); Bacteroides fragilis by PCR Not Detected (Not Detect); Candida albicans by PCR Not Detected (Not Detect); Candida auris by PCR Not Detected (Not Detect); Candida glabrata by PCR Not Detected (Not Detect); Candida krusei by PCR Not Detected (Not Detect); Candida parapsilosis by PCR Not Detected (Not Detect); Candida tropicalis by PCR Not Detected (Not Detect); Crypto. neoformans/gattii PCR Not Detected (Not Detect); Enterobacter cloacae Cmplx PCR Not Detected (Not Detect); Enterobacterales by PCR Not Detected (Not Detect); Enterococcus faecalis by PCR Not Detected (Not Detect); Enterococcus faecium by PCR Not Detected (Not Detect); Escherichia coli by PCR Not Detected (Not Detect); Klebs. pneumoniae group by PCR Not Detected (Not Detect); Klebsiella aerogenes by PCR Not Detected (Not Detect); Klebsiella oxytoca by PCR Not Detected (Not Detect); Proteus by PCR Not Detected (Not Detect); Pseudomonas aeruginosa by PCR Not Detected (Not Detect); Salmonella species by PCR Not Detected (Not Detect); Serratia marcescens by PCR Not Detected (Not Detect); Staph epidermidis by PCR Not Detected (Not Detect); Staph lugdunensis by PCR Not Detected (Not Detect); Staphylococcus aureus by PCR DETECTED (Not Detect); Staphylococcus by PCR Not Detected (Not Detect); Stenotrophomonas maltophilia Not Detected (Not Detect); Streptococcus agalactiae(B)PCR Not Detected (Not Detect); Streptococcus by PCR Not Detected (Not Detect); Streptococcus pneumoniae PCR Not Detected (Not Detect); Streptococcus pyogenes (A) PCR Not Detected (Not Detect); mecA/C & MREJ (MRSA) Gene DETECTED (Not Detect)
[2021-12-29] MEDS ORDERED: Vancomycin 1,500 MG/265 ML IV.SOLN IVPB ONE (05:00)
[2021-12-29] MEDS: Nystatin POWDER 30 GM BOTTLE TP SCH ×4 (08:01→20:05)
[2021-12-29] MEDS: Insulin LISPRO 300 UNITS/3 ML VIAL SUBQ SCH ×4 (08:02→20:03)
[2021-12-29] MEDS: amLODIPine 5 MG TABLET PO SCH (08:03)
[2021-12-29] MEDS: Famotidine 20 MG TABLET PO SCH ×2 (08:03→20:01)
[2021-12-29] MEDS: Aspirin Enteric Coated 81 MG Tablet PO SCH (08:03)
[2021-12-29] MEDS: levoFLOXacin 500 MG/100 ML 500 MG/100 ML BAG IVPB SCH (16:58)
[2021-12-29] MEDS: Melatonin 3 MG TABLET PO SCH (20:00)
[2021-12-29] MEDS: *HR* OxyCODONE Immed Rel 5 MG TABLET PO PRN (20:04)
[2021-12-30] MEDS: *HR* OxyCODONE Immed Rel 5 MG TABLET PO PRN ×3 (02:18→17:27)
[2021-12-30] MEDS: *HR* Enoxaparin 30 MG/0.3 ML SYRINGE SQ SCH (05:59)
[2021-12-30 06:00] LABS: Basophils # 0.1 K/mcL (0.0-0.2); Basophils % 0.5 %; Eosinophils # 0.2 K/mcL (0.0-0.6); Eosinophils % 1.9 %; Hemoglobin 8.9 g/dL (11.5-15.4); Immature Granulocytes % 0.5 % (0-4); Lymphocytes # 1.4 K/mcL (0.6-4.6); Mean Corpuscular HGB Conc 31.8 g/dL (31.6-35.5); Mean Corpuscular Hemoglobin 30.7 pg (28.0-33.3); Mean Corpuscular Volume 96.6 fL (83.0-100.0); Mean Platelet Volume 10.7 fL (9.4-12.4); Monocytes # 1.4 K/mcL (0.0-1.3); Monocytes % 11.4 %; Neutrophils # 9.2 K/mcL (1.6-8.9); Platelet Count 339 K/mcL (140-400); Red Cell Distribution Width 13.9 % (11.5-14.5); Segmented Neutrophils % 74.7 %; White Blood Count 12.2 K/mcL (4.3-11.1)
[2021-12-30 06:49] LABS: Calcium 8.6 mg/dL (8.6-10.3); Magnesium 1.7 mg/dL (1.6-2.6); Potassium 4.1 mEq/L (3.5-5.1)
[2021-12-30] MEDS: Aspirin Enteric Coated 81 MG Tablet PO SCH (08:01)
[2021-12-30] MEDS: Metoprolol XL (24 HR) Succ 25 MG TAB.ER.24H PO SCH (08:01)
[2021-12-30] MEDS: Famotidine 20 MG TABLET PO SCH ×2 (08:02→20:32)
[2021-12-30] MEDS: amLODIPine 5 MG TABLET PO SCH (08:02)
[2021-12-30] MEDS: Nystatin POWDER 30 GM BOTTLE TP SCH ×3 (08:02→20:37)
[2021-12-30] MEDS: Insulin LISPRO 300 UNITS/3 ML VIAL SUBQ SCH ×3 (08:03→17:33)
[2021-12-30] MEDS ORDERED: 0.9 % Sodium Chloride 250 ML ONE (10:39)
[2021-12-30] MEDS ORDERED: Calamine/Zinc oxide Lotion 120 ML BOTTLE TP PRN (16:13)
[2021-12-30] MEDS: levoFLOXacin 500 MG/100 ML 500 MG/100 ML BAG IVPB SCH (16:28)
[2021-12-30] MEDS: Lactobacillus 1 EACH CAP.SPRINK PO SCH (20:32)
[2021-12-30] MEDS: Melatonin 3 MG TABLET PO SCH (20:33)
[2021-12-30] MEDS: Insulin DETEMIR 100 UNIT/ML X5UNITS SUBQ SCH (20:36)
[2021-12-30] MEDS ORDERED: *HR* LORazepam 2 MG/ML VIAL IVP ONE (21:39)
[2021-12-31 08:19] LABS: Basophils # 0.1 K/mcL (0.0-0.2); Basophils % 0.6 %; Eosinophils # 0.2 K/mcL (0.0-0.6); Hematocrit 28.9 % (35.3-44.9); Hemoglobin 9.2 g/dL (11.5-15.4); Immature Granulocytes % 0.4 % (0-4); Lymphocytes # 1.3 K/mcL (0.6-4.6); Lymphocytes % 11.8 %; Mean Corpuscular HGB Conc 31.8 g/dL (31.6-35.5); Mean Corpuscular Hemoglobin 29.9 pg (28.0-33.3); Mean Corpuscular Volume 93.8 fL (83.0-100.0); Mean Platelet Volume 11.1 fL (9.4-12.4); Monocytes # 1.4 K/mcL (0.0-1.3); Monocytes % 13.3 %; Neutrophils # 7.7 K/mcL (1.6-8.9); Platelet Count 352 K/mcL (140-400); Red Blood Count 3.08 M/mcL (3.82-4.97); Red Cell Distribution Width 13.9 % (11.5-14.5); Segmented Neutrophils % 71.9 %; White Blood Count 10.6 K/mcL (4.3-11.1)
[2021-12-31 08:25] LABS: Calcium 8.7 mg/dL (8.6-10.3); Magnesium 1.7 mg/dL (1.6-2.6); Potassium 3.7 mEq/L (3.5-5.1)
[2021-12-31] MEDS: Insulin LISPRO 300 UNITS/3 ML VIAL SUBQ SCH ×3 (11:03→17:49)
[2021-12-31] MEDS: Aspirin Enteric Coated 81 MG Tablet PO SCH (11:27)
[2021-12-31] MEDS: *HR* Enoxaparin 30 MG/0.3 ML SYRINGE SQ SCH (11:27)
[2021-12-31] MEDS: Lactobacillus 1 EACH CAP.SPRINK PO SCH ×2 (11:28→20:03)
[2021-12-31] MEDS: Nystatin POWDER 30 GM BOTTLE TP SCH ×3 (11:28→21:43)
[2021-12-31] MEDS: Famotidine 20 MG TABLET PO SCH ×2 (11:29→20:03)
[2021-12-31] MEDS ORDERED: Lidocaine Viscous Oral Soln 15 ML SOLUTION MM PRN (12:12)
[2021-12-31] MEDS ORDERED: 0.9 % Sodium Chloride 500 ML IVC ONE (12:12)
[2021-12-31] MEDS ORDERED: *HR* FentaNYL (PF) 100 MCG/2 ML VIAL IVP PRN (12:12)
[2021-12-31] MEDS ORDERED: Vancomycin 500 MG in 0.9 % Sodium Chloride Mini Bag 100 ML IVPB ONE (13:00)
[2021-12-31] MEDS: *HR* Midazolam HCl 5 MG/5 ML VIAL IVP PRN ×2 (13:15→13:20)
[2021-12-31] MEDS: amLODIPine 5 MG TABLET PO SCH (14:50)
[2021-12-31] MEDS: Metoprolol XL (24 HR) Succ 25 MG TAB.ER.24H PO SCH (14:51)
[2021-12-31] MEDS: levoFLOXacin 500 MG/100 ML 500 MG/100 ML BAG IVPB SCH (17:26)
[2021-12-31] MEDS: rifAMPin 150 MG CAPSULE PO SCH (17:52)
[2021-12-31] MEDS: Insulin DETEMIR 100 UNIT/ML X5UNITS SUBQ SCH (20:03)
[2021-12-31] MEDS: Melatonin 3 MG TABLET PO SCH (20:03)
[2021-12-31] MEDS: *HR* OxyCODONE Immed Rel 5 MG TABLET PO PRN (23:20)
[2022-01-01 05:10] LABS: Basophils # 0.1 K/mcL (0.0-0.2); Basophils % 0.4 %; Eosinophils # 0.1 K/mcL (0.0-0.6); Eosinophils % 0.9 %; Hematocrit 26.5 % (35.3-44.9); Hemoglobin 8.6 g/dL (11.5-15.4); Immature Granulocytes % 0.4 % (0-4); Lymphocytes # 1.4 K/mcL (0.6-4.6); Lymphocytes % 11.5 %; Mean Corpuscular HGB Conc 32.5 g/dL (31.6-35.5); Mean Corpuscular Hemoglobin 30.4 pg (28.0-33.3); Mean Corpuscular Volume 93.6 fL (83.0-100.0); Mean Platelet Volume 10.6 fL (9.4-12.4); Monocytes # 1.3 K/mcL (0.0-1.3); Monocytes % 10.7 %; Neutrophils # 9.4 K/mcL (1.6-8.9); Platelet Count 325 K/mcL (140-400); Red Blood Count 2.83 M/mcL (3.82-4.97); Red Cell Distribution Width 13.8 % (11.5-14.5); Segmented Neutrophils % 76.1 %; White Blood Count 12.4 K/mcL (4.3-11.1)
[2022-01-01 05:27] LABS: Calcium 8.2 mg/dL (8.6-10.3); Magnesium 1.8 mg/dL (1.6-2.6); Potassium 3.4 mEq/L (3.5-5.1)
[2022-01-01] MEDS: *HR* Enoxaparin 30 MG/0.3 ML SYRINGE SQ SCH (06:07)
[2022-01-01] MEDS: amLODIPine 5 MG TABLET PO SCH (07:35)
[2022-01-01] MEDS: Lactobacillus 1 EACH CAP.SPRINK PO SCH ×2 (07:35→20:19)
[2022-01-01] MEDS: Metoprolol XL (24 HR) Succ 25 MG TAB.ER.24H PO SCH (07:35)
[2022-01-01] MEDS: Aspirin Enteric Coated 81 MG Tablet PO SCH (07:35)
[2022-01-01] MEDS: Famotidine 20 MG TABLET PO SCH ×2 (07:35→20:19)
[2022-01-01] MEDS: rifAMPin 150 MG CAPSULE PO SCH ×2 (07:35→14:45)
[2022-01-01] MEDS: Insulin LISPRO 300 UNITS/3 ML VIAL SUBQ SCH ×3 (07:46→16:50)
[2022-01-01] MEDS: Nystatin POWDER 30 GM BOTTLE TP SCH ×3 (07:55→20:20)
[2022-01-01] MEDS: Sodium Bicarbonate 75 MEQ in 0.45 % Sodium Chloride 1,000 ML IVC SCH ×2 (09:10→20:20)
[2022-01-01] MEDS ORDERED: Heparin 1,000 UNITS/500 mL 500 ML ONE (13:34)
[2022-01-01] MEDS: levoFLOXacin 500 MG/100 ML 500 MG/100 ML BAG IVPB SCH (17:49)
[2022-01-01] MEDS: Insulin DETEMIR 100 UNIT/ML X5UNITS SUBQ SCH (20:20)
[2022-01-01] MEDS: Melatonin 3 MG TABLET PO SCH ×2 (20:20→22:46)
[2022-01-02] MEDS: Sodium Bicarbonate 75 MEQ in 0.45 % Sodium Chloride 1,000 ML IVC SCH (01:29)
[2022-01-02] MEDS: *HR* Enoxaparin 30 MG/0.3 ML SYRINGE SQ SCH (06:07)
[2022-01-02] MEDS: Metoprolol XL (24 HR) Succ 25 MG TAB.ER.24H PO SCH (09:51)
[2022-01-02] MEDS: Insulin LISPRO 300 UNITS/3 ML VIAL SUBQ SCH ×3 (09:58→15:50)
[2022-01-02] MEDS: rifAMPin 150 MG CAPSULE PO SCH ×2 (09:59→15:49)
[2022-01-02] MEDS: amLODIPine 5 MG TABLET PO SCH (10:00)
[2022-01-02] MEDS: Famotidine 20 MG TABLET PO SCH ×2 (10:00→21:23)
[2022-01-02] MEDS: Lactobacillus 1 EACH CAP.SPRINK PO SCH ×2 (10:00→21:23)
[2022-01-02] MEDS: Nystatin POWDER 30 GM BOTTLE TP SCH ×3 (10:00→21:24)
[2022-01-02] MEDS: Aspirin Enteric Coated 81 MG Tablet PO SCH (10:05)
[2022-01-02 16:29] LABS: Basophils % 0.4 %; Eosinophils # 0.2 K/mcL (0.0-0.6); Eosinophils % 2.2 %; Hematocrit 27.1 % (35.3-44.9); Hemoglobin 8.8 g/dL (11.5-15.4); Immature Granulocytes % 0.6 % (0-4); Lymphocytes # 0.7 K/mcL (0.6-4.6); Lymphocytes % 7.1 %; Mean Corpuscular HGB Conc 32.5 g/dL (31.6-35.5); Mean Corpuscular Hemoglobin 30.3 pg (28.0-33.3); Mean Corpuscular Volume 93.4 fL (83.0-100.0); Mean Platelet Volume 10.6 fL (9.4-12.4); Monocytes # 1.2 K/mcL (0.0-1.3); Monocytes % 11.8 %; Neutrophils # 7.9 K/mcL (1.6-8.9); Platelet Count 303 K/mcL (140-400); Red Cell Distribution Width 14.1 % (11.5-14.5); Segmented Neutrophils % 77.9 %; White Blood Count 10.1 K/mcL (4.3-11.1)
[2022-01-02 16:53] LABS: BUN/Creatinine Ratio 15 (6-26); Blood Urea Nitrogen 16 mg/dL (8-23); Calcium 7.9 mg/dL (8.6-10.3); Carbon Dioxide 25 mEq/L (23-29); Chloride 106 mEq/L (98-107); Glucose 231 mg/dL (70-105); Magnesium 1.7 mg/dL (1.6-2.6); Osmolality,Calculated 295 (280-300); Potassium 3.5 mEq/L (3.5-5.1); Sodium 138 mEq/L (136-145); eGFR For African Americans > 60 (> 60); eGFR For Non-African Americans 51 (> 60)
[2022-01-02] MEDS: *HR* OxyCODONE Immed Rel 5 MG TABLET PO PRN (18:37)
[2022-01-02] MEDS: Melatonin 3 MG TABLET PO SCH (21:23)
[2022-01-02] MEDS: Insulin DETEMIR 100 UNIT/ML X5UNITS SUBQ SCH (21:23)
[2022-01-02 22:24] LABS: Adenovirus F 40/41 PCR Not detected (Not detect); Astrovirus PCR Not detected (Not detect); C.difficile Toxin A/B Gene PCR Not detected (Not detect); Campylobacter by PCR Not detected (Not detect); Cryptosporidium by PCR Not detected (Not detect); Cyclospora cayetanensis PCR Not detected (Not detect); Entamoeba histolytica PCR Not detected (Not detect); Enteroaggregative E.coli(EAEC) Not detected (Not detect); Enteropathogenic E.coli(EPEC) Not detected (Not detect); Enterotoxigenic E.coli (ETEC) Not detected (Not detect); Giardia lamblia PCR Not detected (Not detect); Norovirus GI/GII PCR Not detected (Not detect); Plesiomonas shigelloides PCR Not detected (Not detect); Rotavirus A PCR Not detected (Not detect); Salmonella PCR Not detected (Not detect); Sapovirus PCR Not detected (Not detect); Shig/EnteroinvasiveE coli EIEC Not detected (Not detect); Shigalike tox-prod E coli STEC Not detected (Not detect); Vibrio PCR Not detected (Not detect); Vibrio cholerae PCR Not detected (Not detect); Yersinia enterocolitica PCR Not detected (Not detect)
[2022-01-03 05:23] LABS: Basophils # 0.1 K/mcL (0.0-0.2); Basophils % 0.6 %; Eosinophils # 0.3 K/mcL (0.0-0.6); Eosinophils % 3.4 %; Hematocrit 22.5 % (35.3-44.9); Hemoglobin 7.3 g/dL (11.5-15.4); Immature Granulocytes % 0.5 % (0-4); Immature Platelets 3.3 % (1.1-6.1); Lymphocytes # 1.4 K/mcL (0.6-4.6); Lymphocytes % 15.6 %; Mean Corpuscular HGB Conc 32.4 g/dL (31.6-35.5); Mean Corpuscular Volume 92.6 fL (83.0-100.0); Mean Platelet Volume 11.2 fL (9.4-12.4); Monocytes # 1.2 K/mcL (0.0-1.3); Monocytes % 14.2 %; Neutrophils # 5.7 K/mcL (1.6-8.9); Platelet Count 343 K/mcL (140-400); Red Blood Count 2.43 M/mcL (3.82-4.97); Red Cell Distribution Width 14.3 % (11.5-14.5); Segmented Neutrophils % 65.7 %; White Blood Count 8.7 K/mcL (4.3-11.1)
[2022-01-03 05:28] LABS: Magnesium 1.8 mg/dL (1.6-2.6); Potassium 3.3 mEq/L (3.5-5.1)
[2022-01-03] MEDS: *HR* Enoxaparin 30 MG/0.3 ML SYRINGE SQ SCH (06:23)
[2022-01-03] MEDS: Metoprolol XL (24 HR) Succ 25 MG TAB.ER.24H PO SCH (08:44)
[2022-01-03] MEDS: Lactobacillus 1 EACH CAP.SPRINK PO SCH ×2 (08:44→22:02)
[2022-01-03] MEDS: rifAMPin 150 MG CAPSULE PO SCH ×2 (08:45→16:28)
[2022-01-03] MEDS: Famotidine 20 MG TABLET PO SCH ×2 (08:45→22:02)
[2022-01-03] MEDS: *HR* OxyCODONE Immed Rel 5 MG TABLET PO PRN ×2 (08:45→16:28)
[2022-01-03] MEDS: amLODIPine 5 MG TABLET PO SCH (08:45)
[2022-01-03] MEDS: Nystatin POWDER 30 GM BOTTLE TP SCH ×3 (08:46→22:03)
[2022-01-03] MEDS: Aspirin Enteric Coated 81 MG Tablet PO SCH (08:46)
[2022-01-03] MEDS: Insulin LISPRO 300 UNITS/3 ML VIAL SUBQ SCH ×3 (08:46→16:30)
[2022-01-03] MEDS: Melatonin 3 MG TABLET PO SCH (22:02)
[2022-01-03] MEDS: Insulin DETEMIR 100 UNIT/ML X5UNITS SUBQ SCH (22:04)
[2022-01-04] MEDS: *HR* Enoxaparin 30 MG/0.3 ML SYRINGE SQ SCH (06:05)
[2022-01-04] MEDS: Nystatin POWDER 30 GM BOTTLE TP SCH ×3 (07:52→20:52)
[2022-01-04] MEDS: Metoprolol XL (24 HR) Succ 25 MG TAB.ER.24H PO SCH (07:53)
[2022-01-04] MEDS: amLODIPine 5 MG TABLET PO SCH (07:54)
[2022-01-04] MEDS: rifAMPin 150 MG CAPSULE PO SCH ×2 (07:54→15:28)
[2022-01-04] MEDS: Famotidine 20 MG TABLET PO SCH ×2 (07:54→20:44)
[2022-01-04] MEDS: Lactobacillus 1 EACH CAP.SPRINK PO SCH ×2 (07:54→20:44)
[2022-01-04] MEDS: Aspirin Enteric Coated 81 MG Tablet PO SCH (07:54)
[2022-01-04] MEDS: Insulin LISPRO 300 UNITS/3 ML VIAL SUBQ SCH ×3 (08:07→17:19)
[2022-01-04] MEDS: Melatonin 3 MG TABLET PO SCH (20:45)
[2022-01-04] MEDS: Insulin DETEMIR 100 UNIT/ML X5UNITS SUBQ SCH (21:09)
[2022-01-05 05:02] LABS: Basophils % 0.5 %; Eosinophils # 0.5 K/mcL (0.0-0.6); Eosinophils % 5.9 %; Hematocrit 26.9 % (35.3-44.9); Hemoglobin 8.6 g/dL (11.5-15.4); Immature Granulocytes % 0.7 % (0-4); Lymphocytes # 1.6 K/mcL (0.6-4.6); Lymphocytes % 17.8 %; Mean Corpuscular Hemoglobin 29.9 pg (28.0-33.3); Mean Corpuscular Volume 93.4 fL (83.0-100.0); Mean Platelet Volume 10.1 fL (9.4-12.4); Monocytes % 11.5 %; Neutrophils # 5.6 K/mcL (1.6-8.9); Platelet Count 313 K/mcL (140-400); Red Blood Count 2.88 M/mcL (3.82-4.97); Red Cell Distribution Width 14.6 % (11.5-14.5); Segmented Neutrophils % 63.6 %; White Blood Count 8.8 K/mcL (4.3-11.1)
[2022-01-05 05:22] LABS: Calcium 8.8 mg/dL (8.6-10.3)
[2022-01-05 05:24] LABS: Potassium 4.1 mEq/L (3.5-5.1)
[2022-01-05] MEDS: *HR* OxyCODONE Immed Rel 5 MG TABLET PO PRN (05:51)
[2022-01-05] MEDS: *HR* Enoxaparin 30 MG/0.3 ML SYRINGE SQ SCH (05:52)
[2022-01-05 07:00] VITALS: O2SAT 95
[2022-01-05] MEDS ORDERED: Vancomycin 1,250 MG/262.5 ML IV.SOLN IVPB SCH (10:00)
[2022-01-05 14:55] VITALS: BP 182/80; PULSE 69; TEMP 98.4
[2022-01-05] MEDS: Insulin LISPRO 300 UNITS/3 ML VIAL SUBQ SCH ×2 (15:40→15:57)
[2022-01-05] MEDS: rifAMPin 150 MG CAPSULE PO SCH (15:40)
[2022-01-05] MEDS: Aspirin Enteric Coated 81 MG Tablet PO SCH (15:40)
[2022-01-05] MEDS: Lactobacillus 1 EACH CAP.SPRINK PO SCH (15:41)
[2022-01-05] MEDS: Nystatin POWDER 30 GM BOTTLE TP SCH (15:53)
[2022-01-05] MEDS: amLODIPine 5 MG TABLET PO SCH (15:53)
[2022-01-05] MEDS: Metoprolol XL (24 HR) Succ 25 MG TAB.ER.24H PO SCH (15:53)
[2022-01-06] MEDS ORDERED: Famotidine 20 MG TABLET PO SCH (09:00)
== END 2022-01-05 17:20 | disposition short-term general hospital (02) | DRG 342 ==
LOC: 4WAOSI → SUATTDRO 12-28 02:50
PROVIDERS: ADMIT Internal Medicine; ATTEND Pharmacist